=== PATIENT | female | born 1945 | race Caucasian/White ===

== ENCOUNTER → 2016-11-23 | Outpatient (CLI) | payer OTHER, MEDICARE ==
[~2016-11-23] MED LIST: ACYC1CAP8 PO; ALPH200C2 PO; AMT50 PO; BIOTCAP2 PO; BIOTPOW17 PO; CLIN1GEL5; CLTP PO; FINA5TAB PO; FLAX1CAP11 PO; FLUO0.1S12 OP; FLUO0.1S2 OP; GABA-113 PO; GLC850 PO; LIRA18IN INJ; LISI5TAB3 PO; MAGN400T6 PO; METH500T3 PO; METO25TA3 PO; MISCCAP77 PO; MULT-190 PO; NLSI SC; OXYC-57 PO; SIMV40TA2 PO; SYN125 PO; VITA100C4 PO; VITAMIN B12 PO; WARF2TAB PO
--- NOTE | 2016-11-23 16:15 | DIAGNOSTIC IMAGING REPORT ---
RIGHT HIP UNILATERAL 2 VIEWS, LEFT HIP UNILATERAL 2 VIEWS CLINICAL HISTORY: Bilateral hip pain. COMPARISON STUDY: PET CT 07/24/2015. FINDINGS: No acute fracture or dislocation within the right or left hip. There is mild to moderate right and moderate to severe left medial cartilage space narrowing within the bilateral hips. There is associated subchondral sclerosis and subchondral cystic change within the bilateral hips, left greater than right. There is question of slight flattening of the bilateral femoral heads on the lateral views. IMPRESSION: 1. No acute fracture or dislocation within the right or left hip. 2. Mild to moderate right and moderate to severe left hip osteoarthritis . The sclerosis within the femoral heads is likely due to the long-standing degenerative change. However, there may be slight flattening of the femoral heads on the lateral view. Nonemergent MRI follow is recommended to exclude developing avascular necrosis. Electronically signed by: Arturo Johnson M.D. 11/23/2016 4:14 PM Dictated Date/Time: 11/23/2016 4:10 PM
== END | disposition home or self-care (01) ==
LOC: C.RAD1850 14:39
PROVIDERS: ATTEND Family Medicine
DX: M25.551 Pain in right hip (principal); M25.552 Pain in left hip; M16.0 Bilateral primary osteoarthritis of hip

== ENCOUNTER → 2016-12-01 | Outpatient (CLI) | payer OTHER, MEDICARE ==
--- NOTE | 2016-12-01 14:19 | DIAGNOSTIC IMAGING REPORT ---
PELVIS 1 OR 2 VIEWS CLINICAL HISTORY: Bilateral hip pain COMPARISON STUDY: No previous studies for comparison. FINDINGS: No acute fractures are visualized. There are bilateral osteoarthritic changes more severe in the left. No destructive lesions are evident. Degenerative changes are present within the lumbar spine. IMPRESSION: 1. No acute fractures 2. Moderate osteoarthritic changes on the left, mild to moderate osteoarthritic changes on the right. Electronically signed by: Red Minor M.D. 12/01/2016 2:18 PM Dictated Date/Time: 12/01/2016 2:17 PM
== END | disposition home or self-care (01) ==
LOC: C.RDSM 14:05
PROVIDERS: ATTEND Family Medicine
DX: M25.551 Pain in right hip (principal)

== ENCOUNTER → 2016-12-07 | Outpatient (CLI) | payer OTHER, MEDICARE ==
[~2016-12-07] MED LIST changes: +ACYC-57 PO; -ACYC1CAP8 PO
--- NOTE | 2016-12-07 12:12 | DIAGNOSTIC IMAGING REPORT ---
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 FINDINGS: Right jugular Port-A-Cath terminates in the SVC/right cephalic junction. This remains unchanged. The heart is stable in size. Surgical clips at the right hilum. No pneumothorax. A few linear scarlike densities within the base of the right middle lobe. Otherwise, the lungs are clear. No pleural effusions. Old, healed left-sided rib fractures. IMPRESSION: A few linear densities within the base of right middle lobe which favor scarring. Otherwise, no acute process within the chest. Electronically signed by: Arturo Johnson M.D. 12/07/2016 12:11 PM Dictated Date/Time: 12/07/2016 12:07 PM
== END | disposition home or self-care (01) ==
LOC: C.RAD 10:56
PROVIDERS: ATTEND Nurse Practitioner Family
DX: C91.10 Chronic lymphocytic leukemia of B-cell type not having achieved remission (principal)

== ENCOUNTER → 2016-12-07 | Outpatient (CLI) | payer OTHER, MEDICARE ==
--- NOTE | 2016-12-07 10:53 | DIAGNOSTIC IMAGING REPORT ---
MRI THE LEFT HIP NO CONTRAST CLINICAL HISTORY: Left hip pain COMPARISON STUDY: Conventional radiograph the pelvis dated 12/01/2016 FINDINGS: Imaging was performed in the sagittal coronal and axial planes. There is no evidence of pathologic joint effusion. There is no evidence of pathologic adenopathy. There is marrow edema involving the left acetabulum and left femoral head. There are subchondral cystic changes present within the acetabulum and femoral head. There is cartilaginous thinning. While avascular necrosis was considered, the findings are not typical of this diagnosis. IMPRESSION: 1. Rather pronounced marrow edema involving the left acetabulum and left femoral head with subchondral cystic changes and cartilaginous thinning. The findings are likely secondary to advanced osteoarthritis. There are no findings to indicate occult fracture. Electronically signed by: Red Minor M.D. 12/07/2016 10:51 AM Dictated Date/Time: 12/07/2016 10:43 AM
== END | disposition home or self-care (01) ==
LOC: C.MRI 09:34
PROVIDERS: ATTEND Family Medicine
DX: M25.551 Pain in right hip (principal); C91.10 Chronic lymphocytic leukemia of B-cell type not having achieved remission

== ENCOUNTER → 2017-02-15 | Outpatient (CLI) | payer OTHER, MEDICARE ==
--- NOTE | 2017-02-16 08:03 | MAMMOGRAPHY REPORT ---
BILATERAL DIGITAL SCREENING MAMMOGRAM WITH CAD: 02/15/2017 CLINICAL HISTORY: Routine screening. Patient has no complaints. TECHNIQUE: Bilateral CC, MLO and repeat right cc views were obtained. Current study was also evalua audra with a Computer Aided Detection (CAD) system. COMPARISON: Comparison is made to exams dated: 02/12/2016 mammogram, 02/07/2015 mammogram, 02/05/2014 mamm ogram, 08/09/2013 ultrasound, 08/09/2013 mammogram, and 09/30/2012 mammogram - [facility]. BREAST COMPOSITION: The tissue of both breasts is almost entirely fatty. FINDINGS: There is evidence of prior surgery in the breasts. A stable 6 mm mass with associated punc chery microcalcification in the upper outer middle one third of the right breast is unchanged in size dating back to at least 12/08/2007, therefore likely benign. There are numerous scattered and groupe d benign-appearing calcifications bilaterally, and a stable metallic biopsy marker in the anterior le ft breast. No new suspicious mass, architectural distortion or cluster of microcalcifications is see n. IMPRESSION: ACR BI-RADS CATEGORY 1: NEGATIVE There is no mammographic evidence of malignancy. A 1 year screening mammogram is recommended. The pa tient will receive written notification of the results. Approximately 10% of breast cancers are not detected with mammography. A negative mammographic report should not delay biopsy if a clinically suggestive mass is present. Bryanna Alba M.D. ay/:02/15/2017 15:01:14 [employer] Person: Enedina WILLIAM(Kayleen)(Phillip), [facility] letter sent: Normal 1/2 BI-RADS Code: ACR BI-RADS Category 1: Negative
== END | disposition home or self-care (01) ==
LOC: C.MAMM 07:55
PROVIDERS: ATTEND Family Medicine
DX: Z12.31 Encounter for screening mammogram for malignant neoplasm of breast (principal)

== ENCOUNTER 2017-05-12 05:02 | Inpatient (IN) | payer OTHER, MEDICARE ==
--- NOTE | 2017-04-16 12:18 | PAT Medication Instructions ---
Service Date Apr 16, 2017. Current Home Medication List Acyclovir (Zovirax), 400 MG PO BID PRN for PRN Alpha-Lipoic Acid (Thioctic Ac (Alpha Lipoic Acid), 200 MG PO QPM Amitriptyline Hcl (Elavil), 50 MG PO HS Biotin (Biotin 5000), 10,000 MCG PO QAM Calcium/Vitamin D (Caltrate 600 Plus *), 1 TAB PO QPM Fluorometholone (Ophth) (Fml Liquifilm), 1 DROPS OP HS Gabapentin (Neurontin), 300 MG PO TID Levothyroxine (Synthroid *), 0.125 MG PO QAM Liraglutide (Victoza), 1.8 MG INJ QAM Lisinopril (Zestril), 5 MG PO QAM Magnesium Oxide (Mag-Ox), 400 MG PO QAM Metformin Hcl (Glucophage *), 850 MG PO TID Methylcellulose (Laxative) (Citrucel), 500 MG PO TID Metoprolol Succ (Toprol Xl) (Toprol-Xl), 25 MG PO QAM Probiotic Product (Probiotic & Acidophilus F), 1 TAB PO QAM Simvastatin (Zocor), 40 MG PO QPM [Vitamin B12], 1 TAB PO QAM Medication Instructions For Your Scheduled Surgery - Hold the following medications 48 hours prior to surgery: Metformin Hcl (Glucophage *), 850 MG PO TID - Hold the following medications the morning of surgery: [Vitamin B12], 1 TAB PO QAM Probiotic Product (Probiotic & Acidophilus F), 1 TAB PO QAM Methylcellulose (Laxative) (Citrucel), 500 MG PO TID Lisinopril (Zestril), 5 MG PO QAM Magnesium Oxide (Mag-Ox), 400 MG PO QAM Biotin (Biotin 5000), 10,000 MCG PO QAM - Take the following medications the morning of surgery with a sip of water: Metoprolol Succ (Toprol Xl) (Toprol-Xl), 25 MG PO QAM Liraglutide (Victoza), 1.8 MG INJ QAM Gabapentin (Neurontin), 300 MG PO TID Levothyroxine (Synthroid *), 0.125 MG PO QAM Acyclovir (Zovirax), 400 MG PO BID PRN for PRN (if needed) - Take the following medications as scheduled the night before surgery: Simvastatin (Zocor), 40 MG PO QPM Methylcellulose (Laxative) (Citrucel), 500 MG PO TID Gabapentin (Neurontin), 300 MG PO TID Fluorometholone (Ophth) (Fml Liquifilm), 1 DROPS OP HS Calcium/Vitamin D (Caltrate 600 Plus *), 1 TAB PO QPM Amitriptyline Hcl (Elavil), 50 MG PO HS Alpha-Lipoic Acid (Thioctic Ac (Alpha Lipoic Acid), 200 MG PO QPM Acyclovir (Zovirax), 400 MG PO BID PRN for PRN (if needed) If you have any questions please call us at [phone] or [phone] or [phone]
[2017-04-16 13:06] LABS: BASO % 1.1 %; BASO ABS # 0.04 K/uL (0-0.2); COMPLETE YES; EOS % 4.2 %; HEMATOCRIT 39.6 % (37-47); IG% 0.3 %; LYMPH % 26.6 %; LYMPH ABS # 1.01 K/uL (1.2-3.4); MEAN CORPUSCULAR HEMOGLOBIN 29.1 pg (25-34); MEAN CORPUSCULAR HGB CONC 32.3 g/dl (32-36); MEAN PLATELET VOLUME 8.8 fL (7.4-10.4); MONO % 5.5 %; NEUT % 62.3 %; PLATELET COUNT 220 K/uL (130-400); WHITE BLOOD COUNT 3.79 K/uL (4.8-10.8)
[2017-04-16 13:10] LABS: URINE APPEARANCE CLEAR (CLEAR); URINE BILIRUBIN NEG (NEG); URINE COLOR YELLOW; URINE EPITHELIAL CELL AUTO 20-30 /lpf (0-5); URINE NITRITE NEG (NEG); URINE SPECIFIC GRAVITY 1.019 (1.000-1.030); UROBILINOGEN NEG (NEG); ZZUR CULT IF INDIC CLEAN CATCH YES
[2017-04-16 13:14] LABS: MANUAL MICROSCOPIC REQUIRED? NO; REVIEW REQ? NO
[2017-04-16 13:18] LABS: PARTIAL THROMBOPLASTIN RATIO 1.1; PROTHROMBIN TIME (PATIENT) 10.7 SECONDS (9.0-12.0)
[2017-04-16 13:48] LABS: BUN/CREATININE RATIO 17.2 (10-20); CALCIUM 8.8 mg/dl (8.5-10.1); CREATININE 0.68 mg/dl (0.60-1.20); POTASSIUM 4.3 mmol/L (3.5-5.1)
--- NOTE | 2017-04-20 15:47 | HISTORY & PHYSICAL EXAMINATION ---
DATE OF ADMISSION: 05/12/2017 CHIEF COMPLAINT: Left hip pain. HISTORY OF PRESENT ILLNESS: This 71-year-old white female presents to the office with complaints of left hip pain that has been ongoing for years. It has become worse with time. She does have bilateral hip pain, but the left is the most problematic. Pain is worse with weightbearing and ambulation. It is affecting her ADLs. She denies any numbness or tingling. No specific trauma. She does have a history of CLL. X-rays have been obtained. She elects to proceed with left total hip arthroplasty in hopes of alleviating her discomfort. PAST MEDICAL HISTORY: Significant for hypertension, PVCs, diabetes, hypothyroidism, history of CLL, osteoarthritis, obesity, history of adenocarcinoma of the lung, adjustment disorder with depressed mood, alopecia, history of diverticulosis, history of melanoma, polyneuropathy, seborrhea, and tinea corporis. PREVIOUS SURGERIES: Right foot toe and bunion surgery, tubal ligation, vaginal hysterectomy, lobectomy from both lungs, shoulder rotator cuff repair, bronchoscopy, shave biopsies, A-port insertion, colonoscopy, and D&C. FAMILY HISTORY: Significant for skin cancer, diabetes, heart disease, laryngeal cancer, melanoma, and stroke. ALLERGIES: KNOWN ALLERGY TO SULFA DRUGS. CURRENT MEDICATIONS: Ketaconazole 2% topical cream b.i.d., Lamisil 250 mg p.o. daily, vitamin B12 at 500 mcg daily, Victoza 1.8 mg daily, biotin 10,000 mcg p.o. daily, probiotic daily, omega 3 fatty acids p.o. daily, magnesium chloride 400 mg p.o. daily, Citracal p.o. daily, Citrucel 1 tablet p.o. t.i.d., acyclovir 400 mg p.o. b.i.d., levothyroxine 125 mcg p.o. daily, metoprolol 25 mg p.o. daily, simvastatin 40 mg p.o. daily, lisinopril 5 mg p.o. daily, finasteride 5 mg half tablet p.o. daily, clobetasol 0.05% topical solution applied b.i.d., fluocinonide 0.05% topical solution b.i.d., triamcinolone cream 0.1% topically b.i.d., amitriptyline 25 mg p.o. at bedtime, gabapentin 300 mg p.o. t.i.d., metformin 850 mg p.o. t.i.d., Imodium A-D 2 mg 2 tablets p.o. q. 6 hours p.r.n. diarrhea, and Tylenol p.r.n. SOCIAL HISTORY: The patient is . has stage IV lung cancer. No tobacco use and no ETOH use. REVIEW OF SYSTEMS: Significant for above stated conditions, otherwise unremarkable. PHYSICAL EXAMINATION: GENERAL: Well-developed and well-nourished elderly white female, in no acute distress. Tearful today. Anxious. Alert and oriented. Sitting in a chair. SKIN: Warm and dry with fair turgor. No rashes. HEENT: Normocephalic and atraumatic. Eyes PERRLA, EOMI. Nares patent bilaterally without turbinate enlargement. Oropharynx without erythema or exudate. No lesions noted. Uvula midline. Oral mucosa moist. Fair dentition. HEART: RRR. No MGR. LUNGS: Clear to auscultation bilaterally. No crackles, rhonchi or wheezing. Good air movement. ABDOMEN: Obese. Bowel sounds present x4, soft and nontender. No organomegaly. No masses. MUSCULOSKELETAL: Left hip has no obvious asymmetry or deformity. She has limited range of motion secondary to discomfort. She is very limited with internal and external rotation. Hip flexion to greater than 90 degrees. Focal discomfort with palpation over the anterior flexion crease. No significant pain with palpation over the greater trochanter. Ambulatory with a significantly antalgic gait. NEUROLOGIC: Cranial nerves II through XII are intact. Gross sensation is intact across the lower extremities by soft touch. Peripheral pulses are 2+ in the left leg. DATA: Radiographic imaging previously obtained shows an end-stage DJD of the hips, left greater than right. Periarticular osteophytes, subchondral sclerosis, and joint space narrowing are present. IMPRESSION: Left hip end-stage degenerative joint disease. PLAN: Informed written consent will be obtained today of surgery to proceed with left hip total hip arthroplasty. She anticipates going home with home health services for 2 weeks. Prescription was provided for a walker. Prescription for Percocet and Coumadin will be provided at discharge from the hospital. She will obtain medical clearance from her PCP and export documents clerk. She understands that she may require assistance in caring for her in the first few weeks after surgery. Call with any other concerns.
[2017-05-12] VITALS (10 sets, daily range): BP systolic 100–165; BP diastolic 60–88; PULSE 68–90; TEMP 36.3–37.2; O2SAT 95–100; Ht 177.8 cm; Wt 96.3 kg
[~2017-05-12] VITALS: Ht 177.8 cm; Wt 96.3 kg
[~2017-05-12 05:02] MED LIST changes: -ACYC-57 PO; +ACYC1CAP8 PO; -BIOTPOW17 PO; -CLIN1GEL5; -FINA5TAB PO; -FLAX1CAP11 PO; -FLUO0.1S12 OP; -MULT-190 PO; -NLSI SC; -OXYC-57 PO; -VITA100C4 PO; -WARF2TAB PO
[2017-05-12] MEDS ORDERED: ROPIVACAINE 5MG/ML 30 ML 150 MG, BUPIVACAINE/EPINEPHR 0.5% MPF 30 ML, KETOROLAC TROMETH... INFIL SCH ×7 (06:00)
[2017-05-12] MEDS ORDERED: LACTATED RINGER'S 1000ML 500 ML IV ONE (06:00)
[2017-05-12] MEDS ORDERED: LACTATED RINGER'S 1000ML 1,000 ML IV SCH ×2 (06:00)
[2017-05-12] MEDS ORDERED: TRANEXAMIC ACID INJ 1,000 MG in SODIUM CHLORIDE 0.9% 100ML 100 ML IV SCH (06:00)
[2017-05-12] MEDS ORDERED: BUPIVACAINE 0.5 % 5 MG/1 ML PF 10ML VIAL ONE (06:18)
--- NOTE | 2017-05-12 06:18 | History & Physical Bridge Note ---
H&P Re-Evaluation Bridge Note: I have examined the patient, reviewed the History & Physical and in the interval since the performance of the History & Physical I have noted the following changes of clinical significance:consent obtained and went over the risk list. No changes noted
[2017-05-12] MEDS ORDERED: POVIDONE-IODINE OP SOLN 30 ML BTL ONE (06:31)
[2017-05-12] MEDS ORDERED: ORTHO JOINT ANESTHETIC ONE (06:31)
[2017-05-12] MEDS ORDERED: FENTANYL CITRATE INJ 50 MCG/1 ML 2 ML VIAL ONE (06:43)
[2017-05-12] MEDS ORDERED: MIDAZOLAM HCL 1 MG/ML 2ML VIAL ONE ×2 (06:43→07:05)
[2017-05-12] MEDS: CEFAZOLIN 2000 MG/60 ML D5W 60 ML IV SCH ×2 (06:54→07:05)
[2017-05-12] MEDS ORDERED: PROPOFOL IV EMULSION 10 MG/ML 20 ML VIAL IV ONE ×2 (07:06→07:42)
--- NOTE | 2017-05-12 08:55 | [facility] Post Operative Brief Note ---
Immediate Operative Summary Operative Date May 12, 2017. Pre-Operative Diagnosis Left Hip End-Stage Degenerative Joint Disease Post-Operative Diagnosis Left Hip End-Stage Degenerative Joint Disease Procedure(s) Performed Left Total Hip Arthroplasty--Uncemented Surgeon Dr. Gutierrez Pet Counselor Surgeon(s) AGGIE Gonzales Estimated Blood Loss 350 ml Findings severe djd with contracture Fluids (cc crystalloids) 1350cc Specimens A. Left Femoral Head Drains none Anesthesia spinal Complication(s) None Disposition Recovery Room / PACU
[2017-05-12] MEDS ORDERED: SODIUM CHLORIDE 0.9% 1000ML 1,000 ML IV SCH ×2 (08:57→16:45)
[2017-05-12] MEDS ORDERED: METOCLOPRAMIDE HCL INJ 5 MG/ML 2 ML VIAL IV PRN (09:00)
[2017-05-12] MEDS: GABAPENTIN 300 MG CAP PO SCH ×3 (09:00→21:20)
[2017-05-12] MEDS ORDERED: BISACODYL 10 MG SUPP PR PRN (09:00)
[2017-05-12] MEDS ORDERED: OXYCODONE HCL IR 5 MG TAB (IMMEDIATE RELEASE) PO PRN (09:00)
[2017-05-12] MEDS ORDERED: ONDANSETRON INJ 2 MG/ML 2 ML VIAL IV PRN (09:00)
[2017-05-12] MEDS: METOPROLOL SUCC 25MG EXT REL TAB PO SCH (09:00)
[2017-05-12] MEDS ORDERED: DiphenhydrAMINE HCL 50 MG/ML VIAL IV PRN (09:00)
[2017-05-12] MEDS: LEVOTHYROXINE 125 MCG TAB PO SCH (09:00)
[2017-05-12] MEDS ORDERED: MAGNESIUM HYDROXIDE SUSP 30 ML UDC PO PRN (09:00)
[2017-05-12] MEDS ORDERED: MoRPHine SULFATE 2 MG/ML CARP IV PRN (09:00)
[2017-05-12] MEDS ORDERED: ALUMINUM/MAGNESIUM/SIMETH (MAALOX MAX) 30 ML UDC PO PRN (09:00)
--- NOTE | 2017-05-12 09:29 | OPERATIVE REPORT ---
DATE OF OPERATION: 05/12/2017 PREOPERATIVE DIAGNOSIS: Osteoarthritis, severe left hip. POSTOPERATIVE DIAGNOSIS: Same. OPERATION PERFORMED: Noncemented left total hip replacement. SURGEON: Dr. Gutierrez. ACTIVE DIRECTORY SPECIALIST: Osbaldo Cuenca PA-C. No resident or fellow available. SUMMARY OF IMPLANTS: Size 52 acetabular shell sector cup hole eliminator, 6.5 x 25 screw, acetabular liner +4 10 degree lip 36 x 52, 5 high offset Tri-Lock femoral stem and a femoral head 36 +8.5. ESTIMATED BLOOD LOSS: 350. FLUIDS: 1300 mL of fluid. PROCEDURE: The patient appropriately identified, site verified, consent verified, 2 grams of Ancef confirmed as being given. The left lower extremity was prepped and draped in usual routine fashion. She was roughly equal leg lengths, but bilateral disease in the hips. She was placed in right lateral decubitus position appropriately prepped and draped in usual routine fashion. Posterior approach to the hip was made. Sharp dissection carried down to the fascia. This was then incised. The Charnley retractor placed. Care taken to protect the sciatic nerve, which was palpated but not dissected. The short external rotators were all contracted. They were released. The capsule was then T'd and then the hip dislocated. The femoral neck resected. She was large, required a fair amount of dissection and retracting. The osteophytes around the margin of the pelvis were removed, serial reaming carried up to a 52 and a 52 cup impacted into appropriate anteversion and inclination. The trial liner was then seated. The femur was then flexed and internally rotated and broaching carried up to a size 5 and a 5 high offset stem provided the most stability. There was still some instability with maximum flexion, internal rotation beyond 25 degrees with the leg flexed less than 90 degrees, internal rotation can go to 60 degrees. Leg lengths were within millimeters of equality. This was with a +8.5 neck. The hip was then dislocated, the hip was then irrigated with Betadine Pulsavac, hole eliminator seated, permanent liner seated, permanent stem seated, trial reductions carried out. Again, the 8.5 was definitely the appropriate size and permanent was then placed and the hip reduced. Care taken to protect the sciatic nerve and then sure that there was no entrapped tissue in the cup. The hip was stable with the exception of maximum flexion, internal rotation. The wound was irrigated and then closed with #2 Vicryl, 2-0 Vicryl and stainless steel clips. Appropriate dressing applied and the patient transferred to recovery room in satisfactory condition having tolerated the procedure well. DVT prophylaxis will be with Coumadin. I attest to the content of the Intraoperative Record and any orders documented therein. Any exception s are noted below.
--- NOTE | 2017-05-12 09:32 | Anesthesiology Progress Note ---
Anesthesia Post Op Note Date & Time May 12, 2017 at 09:32 Vital Signs Pain Intensity: 0 Vital Signs Past 12 Hours Date Time Temp Pulse Resp B/P (MAP) Pulse Ox O2 Delivery O2 Flow Rate FiO2 05/12/17 09:26 36.3 05/12/17 09:24 67 16 05/12/17 09:24 66 16 100 05/12/17 09:22 132/83 05/12/17 09:19 72 13 05/12/17 09:19 71 13 100 05/12/17 09:17 126/72 05/12/17 09:14 71 15 05/12/17 09:14 71 15 100 05/12/17 09:13 141/71 05/12/17 09:12 74 16 97 05/12/17 09:12 67 16 05/12/17 09:07 69 17 100 05/12/17 09:07 69 17 05/12/17 09:06 68 17 142/67 100 05/12/17 09:06 68 17 05/12/17 09:02 125/85 05/12/17 09:01 70 16 05/12/17 09:01 69 16 100 05/12/17 08:57 124/75 05/12/17 08:56 76 15 05/12/17 08:56 76 15 100 05/12/17 08:56 36.3 80 12 124/75 99 Oxymask 10 05/12/17 05:37 36.9 90 20 135/81 97 Room Air Notes Mental Status: alert / awake / arousable, participated in evaluation Pt Amnestic to Procedure: Yes Nausea / Vomiting: adequately controlled Pain: adequately controlled Airway Patency, RR, SpO2: stable & adequate BP & HR: stable & adequate Hydration State: stable & adequate Neuraxial Anesthesia: was administered, sensory block is resolving Anesthetic Complications: no major complications apparent
[2017-05-12] MEDS ORDERED: ATROPINE SULFATE 0.1 MG/ML 5ML SYR IV PRN (09:45)
[2017-05-12] MEDS ORDERED: EpHEDrine SULFATE INJ 50 MG/ML AMP IV PRN (09:45)
--- NOTE | 2017-05-12 09:46 | DIAGNOSTIC IMAGING REPORT ---
AP PELVIS History: Left total hip arthroplasty. Degenerative arthritis. Postop. FINDINGS: The patient is status post a left total hip arthroplasty. The hardware is intact. No fracture or dislocation. Skin agustin are in place. IMPRESSION: Left total hip arthroplasty. No evidence for hardware complication. Electronically signed by: Arturo Johnson M.D. 05/12/2017 9:45 AM Dictated Date/Time: 05/12/2017 9:42 AM
[2017-05-12] MEDS ORDERED: MoRPHine SULFATE 4 MG/ML 1 ML CARP\\VIAL IV PRN (10:30)
--- NOTE | 2017-05-12 10:57 | Medical Consult ---
Consultation Date of Consultation: May 12, 2017. Attending Physician: Yuan Gutierrez M.D. Reason for Consultation: Post-op med evaluation History of Present Illness 71 y/o F Hx CLL HTN, HPL, DM, hypothyroid, DJD - admitted 05/11 for elective L SHEILA. Pt is recovering well following surgery - vitals are stable. She is tolerating PO an denies CP, SOB, N/V, light-headedness. Follow-up labs are pending. Labs form 04/16 reviewed - notable for mild Leukopenia and a +UA. Past Medical/Surgical History 1) CLL - states she is cancer-free - had several years of chemo 2) Mild neutropenia on previous labs 3) Lung CA - treated with resection only 4) HTN 5) DM 2 6) Hypothyroidism 7) Obesity 8) Melanoma 9) Polyneuropathy 10) Osteoarthritis Family History Diabetes mellitus Hypertension Social History Smoked for 7 years total in her youth Pts currently being treated for stage IV lung CA with immune therapy Smoking Status: Former Smoker Drug Use: none Marital Status: Housing Status: lives with family Occupation Status: employed Allergies Coded Allergies: Sulfa Antibiotics (Verified Allergy, Severe, RASH, 05/12/17) Current Inpatient Medications Current Inpatient Medications Medications (Trade) Dose Ordered Sig/Tracie Route Start Time Stop Time Status Last Admin Dose Admin Lactated Ringer's 1,000 ml @ 15 mls/hr Q24H IV 05/12/17 06:00 05/13/17 05:59 05/12/17 05:57 15 MLS/HR Lactated Ringer's 1,000 ml @ 60 mls/hr [id number] IV 05/12/17 06:00 05/12/17 22:39 Cefazolin Sodium 60 ml @ 100 mls/hr PREOP IV 05/12/17 06:00 05/12/17 18:00 05/12/17 07:05 100 MLS/HR Sodium Chloride 1,000 ml @ 100 mls/hr Q10H IV 05/12/17 08:57 05/13/17 08:56 Ketorolac Tromethamine (Toradol Inj) 15 mg Q6 IV. 05/12/17 12:00 05/13/17 11:59 Oxycodone HCl (Roxicodone Immediate Rel Tab) 1 TABLET FOR PAIN RATING... Q4H PRN PO 05/12/17 09:00 05/26/17 08:59 Morphine Sulfate (MoRPHine SULFATE INJ) 2 mg Q1H PRN IV 05/12/17 09:00 05/26/17 08:59 Acetaminophen 1000 mg/Empty Bag 100 ml @ 400 mls/hr Q8 IV 05/12/17 14:00 05/13/17 13:59 Acetaminophen (Tylenol Tab) 650 mg Q6H PRN PO 05/13/17 14:00 06/12/17 13:59 Magnesium Hydroxide (Milk Of Magnesia Susp) 30 ml Q6H PRN PO 05/12/17 09:00 06/11/17 08:59 Bisacodyl (Dulcolax Supp) 10 mg DAILY PRN [place] 05/12/17 09:00 06/11/17 08:59 Docusate Sodium (coLACE CAP) 100 mg BID PO 05/12/17 09:00 06/11/17 08:59 Diphenhydramine HCl (Benadryl Inj) 25 mg Q8H PRN IV 05/12/17 09:00 06/11/17 08:59 Al Hydrox/Mg Hydrox/Simethicone (Maalox Max Susp) 15 ml Q4H PRN PO 05/12/17 09:00 06/11/17 08:59 Multivitamins (Multivitamin Tab) 1 tab QAM PO 05/12/17 09:00 06/11/17 08:59 Ondansetron HCl (Zofran Inj) 4 mg Q6H PRN IV 05/12/17 09:00 06/11/17 08:59 Metoclopramide HCl (Reglan Inj) 10 mg Q6H PRN IV 05/12/17 09:00 06/11/17 08:59 Ferrous Gluconate (Ferrous Gluconate Tab) 324 mg TIDM PO 05/12/17 12:30 06/11/17 12:29 Pantoprazole Sodium (Protonix Tab) 40 mg QAM PO 05/12/17 09:00 06/11/17 08:59 Cefazolin Sodium 2000 mg/Dextrose 60 ml @ 100 mls/hr Q8H IV 05/12/17 16:00 05/13/17 00:35 Tranexamic Acid 1000 mg/Sodium Chloride 110 ml @ 660 mls/hr ONE ONCE IV 05/12/17 15:00 05/12/17 15:09 Dexamethasone Sodium Phosphate 10 mg/Syringe 2.5 ml @ 1 mls/min ONE ONCE IV 05/13/17 07:30 05/13/17 07:32 Amitriptyline HCl (Elavil Tab) 50 mg HS PO 05/12/17 21:00 06/11/17 20:59 Gabapentin (Neurontin Cap) 300 mg TID PO 05/12/17 09:00 06/11/17 08:59 Levothyroxine Sodium (Synthroid Tab) 125 mcg DAILYBB PO 05/12/17 09:00 06/11/17 08:59 Lisinopril (Zestril Tab) 5 mg QAM PO 05/12/17 09:00 06/11/17 08:59 Magnesium Oxide (Mag-Ox Tab) 400 mg QAM PO 05/12/17 09:00 06/11/17 08:59 Metoprolol Succinate (Toprol Xl Tab) 25 mg QAM PO 05/12/17 09:00 06/11/17 08:59 Simvastatin (Zocor Tab) 40 mg QPM PO 05/12/17 21:00 06/11/17 20:59 Miscellaneous Information (Order Awaiting Action) 1 ea QS N/A 05/12/17 16:00 06/11/17 15:59 Miscellaneous Information (Order Awaiting Action) 1 ea QS N/A 05/12/17 16:00 06/11/17 15:59 Miscellaneous Information (Order Awaiting Action) 1 ea QS N/A 05/12/17 16:00 06/11/17 15:59 Insulin Aspart (novoLOG ASPART) SLIDING SCALE G... ACHS SC 05/12/17 12:00 06/11/17 11:59 Ephedrine Sulfate (EpHEDrine SULFATE INJ) 5 mg Q5M PRN IV 05/12/17 09:45 05/12/17 14:45 Atropine Sulfate (Atropine Sulfate 0.1MG/Ml Inj) 0.5 mg Q1M PRN IV 05/12/17 09:45 05/12/17 14:45 Morphine Sulfate (MoRPHine SULFATE INJ) 4 mg Q1H PRN IV 05/12/17 10:30 05/26/17 10:29 Review of Systems Constitutional: No fever, No chills, No sweats Eyes: No worsening of vision ENT: No hearing loss, No unusual epistaxis, No nasal symptoms Respiratory: No cough, No sputum, No wheezing Cardiovascular: No chest pain Abdomen: No pain, No nausea, No vomiting Musculoskeletal: No joint pain (She is pain-free immediately ), No muscle pain Genitourinary - Female: No dysuria, No urinary frequency, No urinary urgency Neurologic: No memory loss Psychiatric: No depression symptoms Endocrine: No fatigue Hematologic / Lymphatic: No abnormal bleeding/bruising Integumentary: No rash Allergic / Immunologic: No environmental allergies Physical Exam Date Time Temp Pulse Resp B/P (MAP) Pulse Ox O2 Delivery O2 Flow Rate FiO2 05/12/17 10:29 76 16 121/79 (93) 05/12/17 09:42 153/65 05/12/17 09:40 61 15 05/12/17 09:40 64 15 100 05/12/17 09:37 139/66 05/12/17 09:35 65 14 100 05/12/17 09:35 66 14 05/12/17 09:32 134/75 05/12/17 09:30 67 16 100 05/12/17 09:30 68 16 05/12/17 09:27 126/68 05/12/17 09:26 36.3 05/12/17 09:25 67 14 100 05/12/17 09:25 66 14 05/12/17 09:24 67 16 05/12/17 09:24 66 16 100 05/12/17 09:22 132/83 05/12/17 09:19 72 13 05/12/17 09:19 71 13 100 05/12/17 09:17 126/72 05/12/17 09:14 71 15 05/12/17 09:14 71 15 100 05/12/17 09:13 141/71 05/12/17 09:12 74 16 97 05/12/17 09:12 67 16 05/12/17 09:07 69 17 100 05/12/17 09:07 69 17 05/12/17 09:06 68 17 142/67 100 05/12/17 09:06 68 17 05/12/17 09:02 125/85 05/12/17 09:01 70 16 05/12/17 09:01 69 16 100 05/12/17 08:57 124/75 05/12/17 08:56 76 15 05/12/17 08:56 76 15 100 05/12/17 08:56 36.3 80 12 124/75 99 Oxymask 10 05/12/17 05:37 36.9 90 20 135/81 97 Room Air General Appearance: WD/WN, no apparent distress, + pertinent finding (Pleasant elderly female in no distress - AAO x 3) Head: normocephalic Eyes: normal inspection ENT: normal ENT inspection, pharynx normal Neck: supple, no JVD Respiratory/Chest: chest non-tender, lungs clear Cardiovascular: regular rate, rhythm, no edema, no gallop, no JVD Abdomen/GI: normal bowel sounds, non tender, soft Back: normal inspection, no CVA tenderness Extremities/Musculoskelatal: normal inspection, no calf tenderness, normal capillary refill, no pedal edema Neurologic/Psych: housekeeping supervisor hotel II-XII nml as tested, no motor/sensory deficits, alert Skin: normal color, warm/dry Laboratory Results Last 24 Hours Test 05/12/17 05:27 05/12/17 09:13 Bedside Glucose 106 mg/dl 103 mg/dl Assessment & Plan 71 y/o F Hx CLL HTN, HPL, DM, hypothyroid, DJD - admitted 05/11 for elective L SHEILA. Pt is recovering well following surgery - vitals are stable. She is tolerating PO an denies CP, SOB, N/V, light-headedness. Follow-up labs are pending. Labs form 04/16 reviewed - notable for mild Leukopenia and a +UA. 1) Post-op - no noted complications - med will follow-up after repeat labs - she can restart the majority of her home medications - we would hold off on Lisinopril pending AM labs. PT/OT, anticoagulation to discretion of orthopedics. 2) DM - would place on SS pending AM labs and evaluation. 3) Hypothyroid - cont Synthroid 4) HPL - cont Statin Tx 5) On review of April labs her UA was + - We will check her UA as treatment may avoid complication considering her post-op status and low WBC count. Med will follow pending DC Total time for this consult including review of labs, meds, records - discussion with pt - review of ortho notes - 33 min
[2017-05-12] MEDS: DOCUSATE SODIUM 100 MG CAP PO SCH ×2 (11:16→21:19)
[2017-05-12] MEDS: MAGNESIUM OXIDE 400 MG TAB PO SCH (11:16)
[2017-05-12] MEDS: MULTIVITAMIN TAB PO SCH (11:16)
[2017-05-12] MEDS: PANTOprazole SOD 40 MG TAB PO SCH (11:17)
[2017-05-12] MEDS: LISINOPRIL 5 MG TAB PO SCH (11:18)
[2017-05-12] MEDS: KETOROLAC TROMETHAMINE 15 MG/ML VIAL IV. SCH ×2 (11:37→17:32)
[2017-05-12] MEDS: INSULIN ASPART 100 UNITS/ML 3 ML PEN SC SCH ×3 (11:43→21:00)
--- NOTE | 2017-05-12 11:44 | [facility] Operative Report ---
Operative Report Operative Date May 12, 2017. Pre-Operative Diagnosis Left Hip End-Stage Degenerative Joint Disease Post-Operative Diagnosis Left Hip End-Stage Degenerative Joint Disease Procedure(s) Performed Left Total Hip Arthroplasty--Uncemented Surgeon Dr. Gutierrez Targeteer Surgeon(s) AGGIE Gonzales Estimated Blood Loss 350 ml Findings Left hip DJD Fluids 1350cc Specimens A. Left Femoral Head Drains none Anesthesia spinal Complication(s) None Disposition Recovery Room / PACU Indications This 71-year-old white female presented to the office of complaints of intractable left hip pain. She had tried conservative care measures without success. Patient elected to proceed with surgical intervention after being educated about potential risks and outcomes. Preoperative imaging was obtained. Description of Procedure Patient was administered a spinal anesthetic and then taken to the operating room where she was given sedation. She was prepped and draped in usual sterile fashion. Please see Dr. Gutierrez's operative report for specifics of the procedure. I was present for the entire case from initial patient positioning through final wound closure. Assistance was provided in tissue traction, hemostasis, trial implant placement, final implant placement, and final wound closure. Patient was taken to the recovery room in satisfactory condition. I attest to the content of the Intraoperative Record and any orders documented therein. Any exceptions are noted below.
--- NOTE | 2017-05-12 12:29 | PROGRESS NOTE ---
DATE: 05/12/2017 Postop check status post left total hip replacement. At this point in time the patient is sitting comfortably in bed, eating lunch. She denies any chest pain, shortness of breath, fever, chills, nausea, vomiting or headache. Vital signs are stable. She is afebrile. Neurovascular check, femoral sciatic nerve is intact. X-ray postop looks excellent. ASSESSMENT: Doing well status post hip replacement. Continue with post-care pathway, DVT prophylaxis with Coumadin this evening. Mobilize this afternoon.
[2017-05-12] MEDS: FERROUS GLUCONATE 324 MG TAB PO SCH ×2 (12:52→17:31)
[2017-05-12] MEDS ORDERED: TRANEXAMIC ACID INJ 1,000 MG in SODIUM CHLORIDE 0.9% 100ML 100 ML IV ONE (15:00)
[2017-05-12] MEDS: ACETAMINOPHEN IV 1,000 MG in EMPTY BAG 0 ML IV SCH ×2 (15:04→21:42)
[2017-05-12] MEDS ORDERED: WARFARIN SOD 5 MG TAB PO SCH (16:00)
[2017-05-12] MEDS: CEFAZOLIN IV 2,000 MG in DEXTROSE 5% 50ML 50 ML IV SCH (16:18)
[2017-05-12] MEDS ORDERED: SIMVASTATIN 40 MG TAB PO SCH (21:00)
[2017-05-12] MEDS ORDERED: AMITRIPTYLINE HCL 50 MG TAB PO SCH (21:00)
[2017-05-13] MEDS: CEFAZOLIN IV 2,000 MG in DEXTROSE 5% 50ML 50 ML IV SCH (00:35)
[2017-05-13] MEDS: KETOROLAC TROMETHAMINE 15 MG/ML VIAL IV. SCH ×2 (00:35→05:36)
[2017-05-13 03:17] VITALS: BP 102/64; PULSE 73; TEMP 36.5; O2SAT 96
[2017-05-13] MEDS: LEVOTHYROXINE 125 MCG TAB PO SCH (05:36)
[2017-05-13] MEDS: ACETAMINOPHEN IV 1,000 MG in EMPTY BAG 0 ML IV SCH (05:37)
[2017-05-13 05:46] LABS: URINE APPEARANCE CLEAR (CLEAR); URINE BILIRUBIN NEG (NEG); URINE COLOR YELLOW; URINE NITRITE NEG (NEG); UROBILINOGEN NEG (NEG)
[2017-05-13 05:49] LABS: MANUAL MICROSCOPIC REQUIRED? NO; REVIEW REQ? NO
[2017-05-13 05:59] LABS: BASO % 0.1 %; BASO ABS # 0.01 K/uL (0-0.2); COMPLETE YES; EOS % 0.7 %; HEMATOCRIT 31.9 % (37-47); IG% 0.3 %; LYMPH % 7.8 %; LYMPH ABS # 0.54 K/uL (1.2-3.4); MEAN CELL VOLUME 87.2 fL (80-100); MEAN CORPUSCULAR HEMOGLOBIN 29.2 pg (25-34); MEAN CORPUSCULAR HGB CONC 33.5 g/dl (32-36); MEAN PLATELET VOLUME 8.3 fL (7.4-10.4); MONO % 9.5 %; NEUT % 81.6 %; PLATELET COUNT 166 K/uL (130-400); RED BLOOD COUNT 3.66 M/uL (4.2-5.4); WHITE BLOOD COUNT 6.92 K/uL (4.8-10.8)
[2017-05-13 06:33] LABS: BUN/CREATININE RATIO 20.1 (10-20); CALCIUM 8.1 mg/dl (8.5-10.1); CREATININE 0.7 mg/dl (0.60-1.20); POTASSIUM 4.1 mmol/L (3.5-5.1)
--- NOTE | 2017-05-13 07:26 | PROGRESS NOTE ---
DATE: 05/13/2017 Postop day 1 status post left total hip replacement. The patient is doing well. Denies chest pain, shortness of breath, fever, chills, nausea, vomiting or headache. PHYSICAL EXAMINATION: VITAL SIGNS: Vital signs are stable. She is afebrile. ABDOMEN: Soft, nontender. EXTREMITIES: Bilateral calves, nontender. Femoral sciatic nerve function is intact both lower extremities. Wound dressing clean, dry and intact. Hematocrit stable in the 30s. INR is subtherapeutic. ASSESSMENT: Doing well. Will discharge after PT, OT today. technical services consultant assessment today. Discharge on 4 mg of Coumadin after today. Get Coumadin dose per nomogram today and then start 4 mg on Wednesday and get INR checked on Wednesday.
[2017-05-13] MEDS ORDERED: DEXAMETHASONE INJ 10 MG in SYRINGE 0 ML IV ONE (07:30)
[2017-05-13 07:42] VITALS: BP 106/70; PULSE 77; TEMP 36.8; O2SAT 95
--- NOTE | 2017-05-13 07:48 | DISCHARGE SUMMARY ---
CHIEF COMPLAINT: Left hip pain. HISTORY OF PRESENT ILLNESS: A 71-year-old female admitted for elective left total hip replacement, has done well. She denies any major issues. She is ambulatory. Her pain is well managed. PAST MEDICAL HISTORY: Remarkable for hypertension, PVCs, diabetes, hypothyroidism, history of LIZZ, osteoarthritis, obesity, history of adenocarcinoma of the lung, adjustment disorder with depressed mood, alopecia, history of diverticulosis, history of melanoma, history of polyneuropathy, seborrhea and tinea corporis. PAST SURGICAL HISTORY: Include, bunion surgery, tubal ligation, vaginal hysterectomy, lobectomy, rotator cuff repair, bronchoscopy, shave biopsies, A port insertion, colonoscopy and D and C. FAMILY HISTORY: Remarkable for skin cancer, diabetes, heart disease, laryngeal cancer, melanoma and stroke. ALLERGIES: TO SULFA DRUGS. CURRENT MEDICATIONS: Include, ketoconazole cream b.i.d., Lamisil 250 mg daily, vitamins, Victoza 1.8 mg daily, biotin 10,000 mcg p.o. daily, omega 3 fatty acids daily, magnesium chloride 400 mg p.o. daily, Citracal p.o. daily, Citrucel 1 tablet t.i.d. acyclovir 400 mg p.o. b.i.d., levothyroxine 125 mcg daily, metoprolol 25 mg daily, simvastatin 40 mg daily, lisinopril 5 mg daily, finasteride 5 mg half tablet p.o. daily, clobetasol 0.5% topical b.i.d., fluocinonide 0.5% topical solution b.i.d., triamcinolone cream 0.1% topically b.i.d., amitriptyline 25 mg at bedtime, gabapentin 300 mg p.o. t.i.d., metformin 850 mg p.o. t.i.d., Imodium A-D 2 mg tablets p.o. q. 6 hours p.r.n., Tylenol p.r.n. She will add Coumadin to keep INR 1.8-2.2. We will discharge on 4 mg daily. SOCIAL HISTORY: Remarkable for: She is , has a with lung cancer. No tobacco or alcohol use. REVIEW OF SYSTEMS: Negative as noted above with no headache, chest pain, shortness of breath, fever, chills, nausea, vomiting. PHYSICAL EXAMINATION: Reveals intact femoral sciatic nerve function in bilateral lower extremities. Calves nontender. Wound dressing is clean, dry and intact, able to move. Hip is stable. IMAGING DATA: X-rays look excellent. ASSESSMENT: Doing well status post left total hip replacement. We will discharge after physical therapy and occupational therapy today. Posture precautions. Deep vein thrombosis, and pulmonary embolism prophylaxis with Coumadin. Keep INR 1.8-2.2. Discharge on 4 mg daily p.r.n. Percocet. MTDD
[2017-05-13] MEDS ORDERED: OXYC-57 PO (08:57)
[2017-05-13] MEDS ORDERED: WARF2TAB PO (08:57)
--- NOTE | 2017-05-13 09:02 | Discharge Instructions ---
Discharge Instructions Date of Service May 13, 2017. Admission Reason for Admission: Left Hip Degenerative Joint Disease Discharge Discharge Diagnosis / Problem: Left hip s/p total hip replacement Discharge Goals Goal(s): Decrease discomfort, Improve function, Increase independence Activity Recommendations Activity Limitations: as noted below Lifting Limitations: gradually increase as tolerated Exercise/Sports Limitations: until after follow-up appointment Shower/Bathe: keep incision dry Driving or Machine Use: No driving until cleared by Dr. Gutierrez Weightbearing Status: Left weightbearing (as tolerated) . Instructions / Follow-Up Instructions / Follow-Up New Medicine: * You will likely be taking one or more of these medicines: 1. Percocet - Take, as directed, when you need it, every four to six hours to control your pain. 2. Coumadin - Thins your blood to lessen the chance of forming a blood clot. The dose of this is different for each person and is based on your blood tests that are done twice a week. * The most common side effects of pain medicine and iron are nausea and constipation. If nausea or constipation is too much of a problem or if you have any questions about your new medicines or doses, call [facility] at . We will try to help you manage these issues. VERY IMPORTANT TO READ AND REVIEW" Blood Clots and Blood Thinning Medicine: * You are given Coumadin during the immediate post-operative period to lessen the risk of blood clots forming in your legs and/or lungs. Coumadin is usually given for six weeks after surgery. * The prescription is for 2 mg tablets. At discharge, you should understand your dose and take it all at the same time every day, preferably after dinner. * You need to get your blood checked 1 - 2 times per week for six weeks, or as directed. * If your dose needs to change, we will call you. Do not take your medication on the day of the blood test until we call you. * If you don't hear from us after your blood draws, keep taking the same dose. Pain: * The immediate post-operative period after hip replacement surgery is often quite painful. * You are given a prescription for pain medicine. You should take it, as directed, when you need it, especially before physical therapy and before going to bed. Pain that interferes with sleep is very common and can last several months. * You will likely need pain medicine for the first two to four weeks. It will not stop all of the pain. The pain will lessen and as you feel better, you may change to milder pain medicine such as Tylenol. * The most common side effects of pain medicine are nausea and constipation, so don't take more than you need. Physical Therapy: * Follow the "Hip Precautions Instructions." * In some cases, the social worker psychiatric at the hospital will arrange to have a therapist come to your house for the first couple of weeks to help you learn these skills. * You need to practice on your own or with the help of a family member as needed. * When you learn these skills, most of the therapy can be done on your own. Home Exercise: * You were shown a series of exercises in the hospital. Do these exercises three to four times each day including the exercises you were shown in physical therapy. Walking: * Get up and walk several times each day. For the first four weeks, try not to stand or walk for more than one hour at a time. If you do stand or walk for more than one hour, you will not hurt anything, but your leg will likely swell. * As you feel comfortable, you may change from the walker or crutches to a cane and then to independent walking. SELF CARE INSTRUCTIONS AFTER TOTAL HIP REPLACEMENT Until the incision and soft tissues around your hip have healed, there is a possibility that the hip prosthesis could dislocate. A. Observe the following precautions to prevent dislocation: 1. Don't bend your hip greater than 90 degrees. 2. Avoid crossing your legs or ankles while standing or lying. 3. Sit with your feet placed 6 inches apart. 4. When sitting, keep your knees below your hips. Sit on a firm surface, avoid deep, soft chairs and couches. Use an elevated toilet seat in the bathroom. 5. Don't bend over at the waist. Use a long handled shoehorn and a sock aid to help you put on your shoes and socks. A metal sponge making machine operator can help you coal picker objects that are too high or too low to reach. 6. Keep car riding to a minimum for at least one month after surgery. B. Your balance may be shaky for a while. Use crutches or a walker until directed by your doctor. C. Use hand rails when walking on stairs. D. Wear low heeled shoes with non-slip soles. E. Be sure that your floors are free of things that could trip you - throw rugs , electrical cords, small objects. Avoid wet and waxed floors, especially with crutches and canes. F. Try to walk several times a day with rest periods between. G. Continue with all the exercises taught to you in the hospital. Again, make walking a part of your daily routine. VERY IMPORTANT TO READ AND REVIEW A. Take Coumadin, or Lovenox (blood thinning medications) as directed by your doctor. If you are on Coumadin, have a pro-time (blood test) drawn according to your doctor's instructions. This will tell the doctor how well the Coumadin is thinning your blood. B. There are a few signs you need to watch for after you are home. If you notice any of the followin. Increased severe hip pain. Some pain is expected especially when you exercise. 2. Increased swelling in your leg or knee; pain or swelling of the calf muscle in either lower leg. 3. Any fluid drainage from the incision. 4. Shortness of breath or chest pain. TEDs/Elastic Stockings: * The white elastic stockings help limit swelling and prevent blood clots from forming in your legs. The more you wear them, the more they work. * Wear them for six weeks. Prevention of Infection: * Take antibiotics one hour before any dental cleaning, dental work, urological procedure, gastrointestinal procedure or any invasive surgery in order to prevent your new joint from getting infected. * You may get the antibiotics from the doctor performing the procedure or we will call in a prescription to the pharmacy of your choice. Call the office for a prescription at least 2 days prior to your appointment. Things to Watch For: * Drainage from the incision site that occurs more than one week after your surgery. * Severely increased leg pain or swelling. * Increased redness at the incision site. * Fever above 101 degrees Fahrenheit. * Unusual chest pain or shortness of breath. * Unusual pain or burning with urination. Current Hospital Diet Patient's current hospital diet: Diabetes Type 2 Diet Discharge Diet Recommended Diet: Diabetes Type 2 Diet Procedures Procedures Performed: Left Total Hip Arthroplasty--Uncemented Pending Studies Studies pending at discharge: no Medical Emergencies . Who to Call and When: Medical Emergencies: If at any time you feel your situation is an emergency, please call 911 immediately. . Non-Emergent Contact Non-Emergency issues call your: Primary Care Provider, Surgeon Call Non-Emergent contact if: temperature is above 101, wound has increased drainage, wound has increased redness, wound has increased pain, you have any medication questions . "Provider Documentation" section prepared by Osbaldo Cuenca PA-C. . VTE Core Measure Inpt VTE Proph given/why not?: Warfarin (Coumadin), Catherine Swanson, SCD's [place] Drug Monitoring Program Search Results: no issues identified
--- NOTE | 2017-05-13 09:08 | Orthopedic Progress Note ---
Orthopedic Progress Note Date of Service May 13, 2017. Subjective Post OP Day: 1 Reports: feeling well, Denies: complaints, chest pain, SOB, nausea / vomiting, light headedness, calf pain Additional Notes: states she feels pretty well this morning and would like to go home. Objective calves soft nontender, N/V intact, hip located, capillary refill less than 2 sec., dressing C/D/I, incision C/D/I, A&O x3, toes mobile, CMS intact No active drainage. Saw patient ambulating in the hallway with steady slow gait Date Time Temp Pulse Resp B/P (MAP) Pulse Ox O2 Delivery O2 Flow Rate FiO2 05/13/17 07:42 36.8 77 18 106/70 (82) 95 Room Air 05/13/17 03:17 36.5 73 14 102/64 (77) 96 Room Air 05/13/17 00:42 Room Air 05/12/17 23:20 36.8 83 18 100/60 (73) 95 Room Air 05/12/17 19:35 36.8 86 16 113/72 (86) 96 Room Air 86 05/12/17 19:10 Room Air 05/12/17 15:51 37.2 80 16 121/73 (89) 97 Room Air 05/12/17 14:57 100 Nasal Cannula 2.0 05/12/17 13:02 36.5 80 16 165/88 (113) 100 Nasal Cannula 2.0 05/12/17 12:09 36.9 75 18 121/75 (90) 100 Nasal Cannula 2.0 05/12/17 10:53 73 16 134/84 (101) 05/12/17 10:29 76 16 121/79 (93) 05/12/17 09:50 36.3 68 16 143/79 (100) 100 Nasal Cannula 2.0 05/12/17 09:50 100 Nasal Cannula 2.0 05/12/17 09:42 153/65 05/12/17 09:40 61 15 05/12/17 09:40 64 15 100 05/12/17 09:37 139/66 05/12/17 09:35 65 14 100 05/12/17 09:35 66 14 05/12/17 09:32 134/75 05/12/17 09:30 67 16 100 05/12/17 09:30 68 16 9/6/17 09:27 126/68 05/12/17 09:26 36.3 05/12/17 09:25 67 14 100 05/12/17 09:25 66 14 05/12/17 09:24 67 16 05/12/17 09:24 66 16 100 05/12/17 09:22 132/83 05/12/17 09:19 72 13 05/12/17 09:19 71 13 100 05/12/17 09:17 126/72 05/12/17 09:14 71 15 05/12/17 09:14 71 15 100 05/12/17 09:13 141/71 05/12/17 09:12 74 16 97 05/12/17 09:12 67 16 05/12/17 09:07 69 17 100 05/12/17 09:07 69 17 05/12/17 09:06 68 17 142/67 100 05/12/17 09:06 68 17 Laboratory Results 24 Hours: Test 05/13/17 05:35 White Blood Count 6.92 K/uL Red Blood Count 3.66 M/uL Hemoglobin 10.7 g/dL Hematocrit 31.9 % Mean Corpuscular Volume 87.2 fL Mean Corpuscular Hemoglobin 29.2 pg Mean Corpuscular Hemoglobin Concent 33.5 g/dl Platelet Count 166 K/uL Mean Platelet Volume 8.3 fL Neutrophils (%) (Auto) 81.6 % Lymphocytes (%) (Auto) 7.8 % Monocytes (%) (Auto) 9.5 % Eosinophils (%) (Auto) 0.7 % Basophils (%) (Auto) 0.1 % Neutrophils # (Auto) 5.64 K/uL Lymphocytes # (Auto) 0.54 K/uL Monocytes # (Auto) 0.66 K/uL Eosinophils # (Auto) 0.05 K/uL Basophils # (Auto) 0.01 K/uL Prothromb Time International Ratio 1.0 Prothrombin Time 11.0 SECONDS Assessment & Plan Assessment: Left hip post op day 1 total hip arthroplasty Plan: Dressing changed this morning-Dr. Gutierrez present. continue coumadin per nomogram continue total hip precautions plan for D/C to home today after PT/OT call the office with any questions. Discharge Planning Discharge Planning: home with home health Pain Management: Percocet DVT Prophylaxis: TEDs, SCDs, Coumadin Therapy: Physical Therapy, Occupational Therapy
[2017-05-13] MEDS: INSULIN ASPART 100 UNITS/ML 3 ML PEN SC SCH (09:25)
[2017-05-13] MEDS: METOPROLOL SUCC 25MG EXT REL TAB PO SCH (09:25)
[2017-05-13] MEDS: PANTOprazole SOD 40 MG TAB PO SCH (09:26)
[2017-05-13] MEDS: FERROUS GLUCONATE 324 MG TAB PO SCH ×2 (09:26→12:17)
[2017-05-13] MEDS: GABAPENTIN 300 MG CAP PO SCH (09:26)
[2017-05-13] MEDS: MULTIVITAMIN TAB PO SCH (09:26)
[2017-05-13] MEDS: MAGNESIUM OXIDE 400 MG TAB PO SCH (09:26)
[2017-05-13] MEDS: DOCUSATE SODIUM 100 MG CAP PO SCH (09:26)
[2017-05-13] MEDS: LISINOPRIL 5 MG TAB PO SCH (09:27)
[2017-05-13] MEDS ORDERED: WARFARIN SOD 5 MG TAB PO SCH (12:00)
[2017-05-13 12:13] VITALS: BP 124/70; PULSE 70; TEMP 37.2; O2SAT 96
[2017-05-13 13:16] VITALS: BP 124/70; PULSE 70; TEMP 37.2; O2SAT 96
[2017-05-13] MEDS ORDERED: ACETAMINOPHEN 325 MG TAB PO PRN (14:00)
== END 2017-05-13 13:54 | disposition home health service (06) | DRG 470 ==
LOC: C.ACU 05:02 → UNDOADMIN 06:15 → C.3E 06:15 → ENRESERV 09:20
PROVIDERS: ADMIT Physical Medicine & Rehabilitation Sports Medicine; ATTEND Physical Medicine & Rehabilitation Sports Medicine
PROC: 0SRB0JA Replacement of Left Hip Joint with Synthetic Substitute, Uncemented, Open Approach (ICD-10-PCS; principal; 2017-05-12 07:00)
DX: M16.12 Unilateral primary osteoarthritis, left hip (principal); I10 Essential (primary) hypertension; E11.42 Type 2 diabetes mellitus with diabetic polyneuropathy; E03.9 Hypothyroidism, unspecified; L65.9 Nonscarring hair loss, unspecified; F43.21 Adjustment disorder with depressed mood; E66.9 Obesity, unspecified; Z51.81 Encounter for therapeutic drug level monitoring; Z79.899 Other long term (current) drug therapy; Z79.84 Long term (current) use of oral hypoglycemic drugs; Z68.30 Body mass index [BMI] 30.0-30.9, adult; Z85.118 Personal history of other malignant neoplasm of bronchus and lung; Z85.820 Personal history of malignant melanoma of skin; Z85.6 Personal history of leukemia; Z87.891 Personal history of nicotine dependence; Z80.8 Family history of malignant neoplasm of other organs or systems; Z83.3 Family history of diabetes mellitus; Z82.3 Family history of stroke; Z82.49 Family history of ischemic heart disease and other diseases of the circulatory system

== ENCOUNTER → 2017-05-20 | Outpatient (CLI) | payer OTHER, MEDICARE ==
[~2017-05-20] MED LIST changes: +OXYC-57 PO; +WARF2TAB PO
[2017-05-20 13:52] LABS: INR 1.2 (0.9-1.1); PROTHROMBIN TIME (PATIENT) 13.4 SECONDS (9.0-12.0)
== END | disposition home or self-care (01) ==
LOC: C.LABSPEC 12:46
PROVIDERS: ATTEND Physical Medicine & Rehabilitation Sports Medicine
DX: Z79.01 Long term (current) use of anticoagulants (principal)

== ENCOUNTER → 2017-05-24 | Outpatient (CLI) | payer OTHER, MEDICARE ==
[~2017-05-24] MED LIST changes: +ACYC-57 PO; -ACYC1CAP8 PO
[2017-05-24 13:14] LABS: INR 1.7 (0.9-1.1); PROTHROMBIN TIME (PATIENT) 18.7 SECONDS (9.0-12.0)
== END | disposition home or self-care (01) ==
LOC: C.LABSPEC 12:16
PROVIDERS: ATTEND Physical Medicine & Rehabilitation Sports Medicine
DX: Z01.89 Encounter for other specified special examinations (principal)

== ENCOUNTER → 2017-05-28 | Outpatient (CLI) | payer OTHER, MEDICARE ==
[~2017-05-28] MED LIST changes: -ACYC-57 PO; +ACYC1CAP8 PO
[2017-05-28 12:16] LABS: INR 2.2 (0.9-1.1); PROTHROMBIN TIME (PATIENT) 24.1 SECONDS (9.0-12.0)
== END | disposition home or self-care (01) ==
LOC: C.LAB 11:31
PROVIDERS: ATTEND Physician Assistant
DX: Z51.81 Encounter for therapeutic drug level monitoring (principal); Z79.01 Long term (current) use of anticoagulants

== ENCOUNTER → 2017-06-11 | Outpatient (CLI) | payer OTHER, MEDICARE ==
[2017-06-11 09:38] LABS: INR 1.6 (0.9-1.1); PROTHROMBIN TIME (PATIENT) 17.1 SECONDS (9.0-12.0)
== END | disposition home or self-care (01) ==
LOC: C.LABSPEC 16:35
PROVIDERS: ATTEND Physician Assistant
DX: Z51.81 Encounter for therapeutic drug level monitoring (principal); Z79.01 Long term (current) use of anticoagulants

== ENCOUNTER → 2017-06-18 | Outpatient (CLI) | payer OTHER, MEDICARE ==
[~2017-06-18] MED LIST changes: +ACYC-57 PO; -ACYC1CAP8 PO
[2017-06-18 09:27] LABS: INR 2.2 (0.9-1.1)
[2017-06-18 09:56] LABS: CHOLESTEROL/HDL RATIO 2.6
== END | disposition home or self-care (01) ==
LOC: C.LAB 13:43
PROVIDERS: ATTEND Physician Assistant
DX: Z51.81 Encounter for therapeutic drug level monitoring (principal); Z79.01 Long term (current) use of anticoagulants

== ENCOUNTER → 2017-07-05 | Outpatient (CLI) | payer OTHER, MEDICARE | END | disposition home or self-care (01) | LOC: C.RDSM 09:45 | PROVIDERS: ATTEND Physical Medicine & Rehabilitation Sports Medicine | DX: M16.0 Bilateral primary osteoarthritis of hip (principal) ==

== ENCOUNTER → 2017-09-17 | Outpatient (CLI) | payer OTHER, MEDICARE ==
[2017-09-17 16:03] LABS: ALBUMIN 3.7 gm/dl (3.4-5.0); ALT/SGPT 30 U/L (12-78); BLOOD UREA NITROGEN 14 mg/dl (7-18); CALCIUM 9.3 mg/dl (8.5-10.1); CARBON DIOXIDE 28 mmol/L (21-32); CHOLESTEROL 168 mg/dl (0-200); CREATININE 0.82 mg/dl (0.60-1.20); GLUCOSE 200 mg/dl (70-99); POTASSIUM 4.4 mmol/L (3.5-5.1); SODIUM 139 mmol/L (136-145)
[2017-09-17 16:14] LABS: ALKALINE PHOSPHATASE 72 U/L (45-117); AST/SGOT 22 U/L (15-37); LDL CHOLESTEROL CALCULATED 61 mg/dl; TOTAL PROTEIN 7.6 gm/dl (6.4-8.2)
[2017-09-18 06:40] LABS: HEMOGLOBIN A1C 6.6 % (4.5-5.6)
== END | disposition home or self-care (01) ==
LOC: C.LAB1850 13:28
PROVIDERS: ATTEND Internal Medicine Endocrinology, Diabetes & Metabolism
DX: R20.0 Anesthesia of skin (principal); R80.9 Proteinuria, unspecified; E11.9 Type 2 diabetes mellitus without complications; E66.9 Obesity, unspecified

== ENCOUNTER → 2018-04-18 | Outpatient (CLI) | payer OTHER, MEDICARE ==
[~2018-04-18] MED LIST changes: -OXYC-57 PO; -WARF2TAB PO
== END | disposition home or self-care (01) ==
LOC: C.RDSM 07:35
PROVIDERS: ATTEND Physical Medicine & Rehabilitation Sports Medicine
DX: M25.552 Pain in left hip (principal)

== ENCOUNTER → 2018-04-27 | Outpatient (CLI) | payer OTHER, MEDICARE ==
[2018-04-27 10:19] LABS: BASO % 0.8 %; BASO ABS # 0.03 K/uL (0-0.2); EOS % 3.5 %; EOS ABS # 0.14 K/uL (0-0.5); HEMATOCRIT 39.2 % (37-47); HEMOGLOBIN 12.5 g/dL (12.0-16.0); IG# 0.01 K/uL (0.00-0.02); LYMPH % 24.1 %; LYMPH ABS # 0.96 K/uL (1.2-3.4); MEAN CELL VOLUME 89.1 fL (80-100); MEAN CORPUSCULAR HEMOGLOBIN 28.4 pg (25-34); MEAN CORPUSCULAR HGB CONC 31.9 g/dl (32-36); MEAN PLATELET VOLUME 8.9 fL (7.4-10.4); MONO % 7.5 %; NEUT % 63.8 %; NEUT ABS # 2.55 K/uL (1.4-6.5); PLATELET COUNT 177 K/uL (130-400); RED CELL DISTRIBUTION WIDTH CV 13.9 % (11.5-14.5); RED CELL DISTRIBUTION WIDTH SD 45.3 fL (36.4-46.3); WHITE BLOOD COUNT 3.99 K/uL (4.8-10.8)
[2018-04-27 11:08] LABS: ALBUMIN 3.5 gm/dl (3.4-5.0); ALKALINE PHOSPHATASE 66 U/L (45-117); ALT/SGPT 23 U/L (12-78); AST/SGOT 13 U/L (15-37); BLOOD UREA NITROGEN 24 mg/dl (7-18); CALCIUM 8.6 mg/dl (8.5-10.1); CARBON DIOXIDE 28 mmol/L (21-32); CREATININE 0.68 mg/dl (0.60-1.20); GLUCOSE 89 mg/dl (70-99); POTASSIUM 4.3 mmol/L (3.5-5.1); SODIUM 140 mmol/L (136-145); TOTAL PROTEIN 6.4 gm/dl (6.4-8.2)
== END | disposition home or self-care (01) ==
LOC: C.LABSPEC 10:09
PROVIDERS: ATTEND Nurse Practitioner Family
DX: C91.10 Chronic lymphocytic leukemia of B-cell type not having achieved remission (principal)

== ENCOUNTER 2020-10-13 02:31 | Inpatient (IN) ==
--- NOTE | 2020-10-13 02:42 | Emergency Department Note ---
History of Present Illness General Chief complaint: Fall Stated complaint: FALL Time Seen by Provider: 10/13/20 02:32 History of Present Illness This 75-year-old presents to the ER complaining of fall with left hip thigh pain Location: Left hip and thigh Quality: Throbbing Severity: Moderate Duration: Tonight Timing: Tonight Context: Pain got worse and patient came in Modifying factors: better with rest; worse with walking Patient states she fell last night in the garage around 5 PM. She is able to get up and bear weight. She called her orthopedic doctor and was advised to monitor. Pain got worse and patient came in. Patient denies back pain, numbness, tingling, chest pain, dyspnea, abdominal pain, blood thinners. Home Medications Medication Instructions Recorded Confirmed Type acyclovir 400 mg tablet 400 mg PO BID tab 08/24/19 10/13/20 History calcium carbonate-vitamin D3 600 1 tab PO DAILY 08/24/19 10/13/20 History mg (1,500 mg)-800 unit tablet metoprolol succinate 25 mg 25 mg PO DAILY 08/24/19 10/13/20 History tablet,extended release 24 hr simvastatin 40 mg tablet 40 mg PO DAILY tab 08/24/19 10/13/20 History cyanocobalamin (vitamin B-12) 1,000 mcg PO DAILY cap 08/25/19 10/13/20 History 1,000 mcg capsule omega-3 fatty acids 1,000 mg 1,000 mg PO DAILY cap 08/25/19 10/13/20 History capsule gabapentin 300 mg capsule 300 mg PO TID 90 Days #270 cap 11/16/19 10/13/20 Rx metformin 850 mg tablet 850 mg PO TID #270 tab 01/17/20 10/13/20 Rx calcitriol 0.5 mcg capsule 0.5 mcg PO .COMPLEX #90 cap 04/25/20 10/13/20 Rx amitriptyline 50 mg tablet 50 mg PO HS 90 Days #90 tab 05/02/20 10/13/20 Rx levothyroxine 88 mcg tablet 88 mcg PO DAILY #90 tab 07/26/20 10/13/20 Rx blood sugar diagnostic #30 ea 08/12/20 08/12/20 Rx blood sugar diagnostic #30 ea 08/13/20 Rx fluoride (sodium) [SF 5000 Plus] 1 applic DENTAL HS 10/13/20 10/13/20 History Allergies Allergy/AdvReac Type Severity Reaction Status Date / Time Sulfa (Sulfonamide Allergy Severe RASH Verified 10/13/20 04:17 Antibiotics) Past Med/Surg History Medical History Conductive hearing loss in left ear Diabetic peripheral neuropathy associated with type 2 diabetes mellitus Diverticular disease of colon History of - malignant melanoma (Unknown) "upper extremities followed by Dr. Santana " History of pneumonia Hypomagnesemia Loss of protective sensation of skin of foot Lung cancer (~01/2013) Surgical History H/O vaginal surgery prolapase repair, she refers to it as "web" Total hysterectomy with removal of both tubes and ovaries (Unknown) "vaginal approach 2009 Dr. Mathur " Social History Smoking Status: Former smoker Hx Alcohol Use: No Feels Safe at Home: Yes Review of Systems A total of 10 systems reviewed and were otherwise negative Physical Exam Vital Signs Vital Signs - 24 hr 10/13/20 02:35 10/13/20 02:40 10/13/20 03:18 Temperature 36.9 C Temperature Source Oral Pulse Rate 92 H 93 H 76 Pulse Rate [Apical] Pulse Rate from SpO2 Sensor 91 H Respiratory Rate 20 18 14 Respiratory Effort / Characteristics Non-Labored Spontaneous Respiratory Depth Normal Respiratory Pattern Regular Blood Pressure 124/83 124/83 90/51 L Blood Pressure [Right Arm] Blood Pressure Mean 96 96 64 Blood Pressure Mean [Right Arm] Blood Pressure Position Semi-fowlers Blood Pressure Position [Right Arm] Pulse Oximetry 98 98 Oxygen Delivery Method Room Air Sepsis Recent Fever Within 48 Hours No Sepsis New/Unexplained Change in Mental Status No Sepsis Action Taken by Nursing No Action Required 10/13/20 03:19 10/13/20 03:46 10/13/20 03:48 Temperature Temperature Source Pulse Rate 69 65 Pulse Rate [Apical] 75 Pulse Rate from SpO2 Sensor Respiratory Rate 18 24 18 Respiratory Effort / Characteristics Respiratory Depth Respiratory Pattern Blood Pressure 74/46 L 81/44 L Blood Pressure [Right Arm] 90/51 L Blood Pressure Mean 55 56 Blood Pressure Mean [Right Arm] 64 Blood Pressure Position Blood Pressure Position [Right Arm] Lying Pulse Oximetry 96 Oxygen Delivery Method Room Air Sepsis Recent Fever Within 48 Hours Sepsis New/Unexplained Change in Mental Status Sepsis Action Taken by Nursing VITALS: Vitals are noted on the nurse's note and reviewed by myself. Vital signs stable. GENERAL: Pleasant elderly female, in no acute distress, nondiaphoretic, well- developed well-nourished. SKIN: Capillary reflex less than 2 seconds. HEENT: Normocephalic. PERRLA. EOMI. Nares patent. Mucous membranes moist. Neck is supple without nuchal rigidity. HEART: Regular rate and rhythm LUNGS: Clear to auscultation bilaterally without wheezes, rales or rhonchi. No retractions or accessory muscle use. ABDOMEN: Positive bowel sounds x 4. Normal tympanic percussion. Soft, nontender, without masses or organomegaly. Manley sign negative. No guarding or rebound tenderness. MUSCULOSKELETAL: No gross musculoskeletal defects. No thoracic or lumbar tenderness on exam. Left hip and proximal thigh tender to palpation. Increased pain with range of motion. All other extremities nontender to palpation with full range of motion. Pedal pulses +2 equal and present bilaterally. NEURO: Patient was alert and oriented to person place and time. Normal sensation to light and sharp touch. No focal neurological deficits. Course Administered Medications Discontinued Medications Sodium Chloride (Nss 1000ml) 500 mls @ 999 mls/hr IV .Q31M ONE Stop: 10/13/20 04:20 Last Infusion: 10/13/20 04:58 Dose: 0 mls/hr Documented by: [id number] Admin: 10/13/20 04:19 Dose: 999 mls/hr Documented by: [id number] Sodium Chloride (Nss 1000ml) 500 mls @ 999 mls/hr IV .Q31M ONE Stop: 10/13/20 04:27 Last Infusion: 10/13/20 04:58 Dose: 0 mls/hr Documented by: [id number] Admin: 10/13/20 04:19 Dose: 999 mls/hr Documented by: [id number] Ondansetron HCl (Ondansetron 4 Mg Od Tab) 4 mg PO NOW STA Stop: 10/13/20 03:20 Last Admin: 10/13/20 03:23 Dose: 4 mg Documented by: [id number] Medical Decision Making Medical Records Attestation: I reviewed the patient's medical records. Home Medications Current Medication List: was personally reviewed by me Laboratory Data Result diagrams: 10/13/20 04:05 10/13/20 04:05 Lab Results 10/13/20 10/13/20 10/13/20 Range/Units 04:05 04:05 04:14 WBC 6.85 (4.8-10.8) K/uL RBC 3.09 L (4.2-5.4) M/uL Hgb 9.2 L (12.0-16.0) g/dL POC Hgb 9.2 L (12.0-16.0) g/dl Hct 27.0 L (37-47) % POC Hct 27 L (37-47) % MCV 87.4 (80-100) fL MCH 29.8 (25-34) pg MCHC 34.1 (32-36) g/dL RDW Std Deviation 43.2 (36.4-46.3) fL RDW Coeff of Latasha 13.5 (11.5-14.5) % Plt Count 183 (130-400) K/uL MPV 9.1 (7.4-10.4) fL Immature Gran % (Auto) 0.0 % Neut % (Auto) 85.5 % Lymph % (Auto) 7.9 % Mckean % (Auto) 6.0 % Eos % (Auto) 0.3 % Baso % (Auto) 0.3 % Neut # (Auto) 5.86 (1.4-6.5) K/uL Lymph # (Auto) 0.54 L (1.2-3.4) K/uL Mckean # (Auto) 0.41 (0.11-0.59) K/uL Eos # (Auto) 0.02 (0-0.5) K/uL Baso # (Auto) 0.02 (0-0.2) K/uL Immature Gran # (Auto) 0.00 (0.00-0.02) K/uL POC Sodium 130 L (135-144) mmol/L Sodium 134 L (136-145) mmol/L POC Potassium 3.7 (3.3-5.0) mmol/L Potassium 3.8 (3.5-5.1) mmol/L POC Chloride 93 L (101-112) mmol/L Chloride 100 (98-107) mmol/L Carbon Dioxide 30 (21-32) mmol/L POC Total CO2 27 (24-31) mmol/L Anion Gap 4.0 (3-11) POC Anion Gap 15.0 L (16-25) mmol/L POC BUN 19 H (7-18) mg/dl BUN 20 H (7-18) mg/dl Creatinine 0.56 L (0.6-1.2) mg/dl POC Creatinine 0.5 L (0.6-1.3) mg/dl Est Cr Clr Drug Dosing 92.1 ml/min Est GFR ( Amer) 106.5 Est GFR (Non-Af Amer) 91.9 BUN/Creatinine Ratio 35.3 H (10-20) Glucose 186 H (70-99) mg/dl POC Glucose (other) 188 H (70-99) mg/dl Calcium 8.1 L (8.5-10.1) mg/dl POC Ioniz Calcium Ian 1.14 (1.12-1.32) mmol/l Total Bilirubin 0.3 (0.2-1) mg/dl AST 12 L (15-37) U/L ALT 15 (12-78) U/L Alkaline Phosphatase 38 L (45-117) U/L Total Protein 5.6 L (6.4-8.2) gm/dl Albumin 3.1 L (3.4-5.0) gm/dl Globulin 2.5 (2.5-4.0) gm/dl Albumin/Globulin Ratio 1.2 (0.9-2) COVID-19 Eval Order 10/13/20 Range/Units 04:45 WBC (4.8-10.8) K/uL RBC (4.2-5.4) M/uL Hgb (12.0-16.0) g/dL POC Hgb (12.0-16.0) g/dl Hct (37-47) % POC Hct (37-47) % MCV (80-100) fL MCH (25-34) pg MCHC (32-36) g/dL RDW Std Deviation (36.4-46.3) fL RDW Coeff of Latasha (11.5-14.5) % Plt Count (130-400) K/uL MPV (7.4-10.4) fL Immature Gran % (Auto) % Neut % (Auto) % Lymph % (Auto) % Mckean % (Auto) % Eos % (Auto) % Baso % (Auto) % Neut # (Auto) (1.4-6.5) K/uL Lymph # (Auto) (1.2-3.4) K/uL Mckean # (Auto) (0.11-0.59) K/uL Eos # (Auto) (0-0.5) K/uL Baso # (Auto) (0-0.2) K/uL Immature Gran # (Auto) (0.00-0.02) K/uL POC Sodium (135-144) mmol/L Sodium (136-145) mmol/L POC Potassium (3.3-5.0) mmol/L Potassium (3.5-5.1) mmol/L POC Chloride (101-112) mmol/L Chloride (98-107) mmol/L Carbon Dioxide (21-32) mmol/L POC Total CO2 (24-31) mmol/L Anion Gap (3-11) POC Anion Gap (16-25) mmol/L POC BUN (7-18) mg/dl BUN (7-18) mg/dl Creatinine (0.6-1.2) mg/dl POC Creatinine (0.6-1.3) mg/dl Est Cr Clr Drug Dosing ml/min Est GFR ( Amer) Est GFR (Non-Af Amer) BUN/Creatinine Ratio (10-20) Glucose (70-99) mg/dl POC Glucose (other) (70-99) mg/dl Calcium (8.5-10.1) mg/dl POC Ioniz Calcium Ian (1.12-1.32) mmol/l Total Bilirubin (0.2-1) mg/dl AST (15-37) U/L ALT (12-78) U/L Alkaline Phosphatase (45-117) U/L Total Protein (6.4-8.2) gm/dl Albumin (3.4-5.0) gm/dl Globulin (2.5-4.0) gm/dl Albumin/Globulin Ratio (0.9-2) COVID-19 Eval Order Covid19 [facility] Imaging Data Attestation: I personally reviewed and interpreted this imaging study as follows: MDM Narrative Prior records reviewed and summarized above. Triage Nursing notes reviewed. Additional history obtained from EMS. The patient's history was concerning for left hip and thigh pain. Differential diagnosis: Etiologies such as fracture, dislocation, hematoma, neurovascular compromise, compartment syndrome, soft tissue injury, as well as others were entertained. Physical examination: As above ER treatment provided: IV lock, Zofran IV fluids NPO Bedrest On reassessment the patient felt better. Diagnostics interpreted by me: The labs anemia, type and screen sent Patient consented to blood transfusion if needed and paperwork placed on the chart. Imaging studies: Xrays of hip/pelvis and femur negative for fracture per my interpretation CT PELVIS: No displaced hip fracture or suggestion of nondisplaced hip fracture. Large soft tissue hematoma overlying the left hip measuring approximately 12 x 10 x 5 cm. Left total hip arthroplasty. Moderate right hip arthritis. Radiologist: Vikas Monae MD The patient has a large left thigh hematoma and became hypotensive. Imaging was negative for fracture. She was given IV fluids. Medicine was consulted. She will be evaluated for admission. Blood pressure improved. Patient is agreeable treatment plan of admission. Consultation: A consultation was placed with medicine, Dr. Angulo. The case was discussed and diagnostics were reviewed. The patient was evaluated in the ER for further treatment. The chart was completed utilizing [employer] Speech voice recognition software. Grammatical errors, random word insertions, pronoun errors, and incomplete sentences are an occassional consequence of this system due to software limitations, ambient noise, and hardware issues. Any formal questions or concerns about the content, text, or information contained within the body of this dictation should be directly addressed to the physician assistant finance manager for clarification. Impression & Plan Hypotension, Fall, Hematoma of thigh, Anemia Discharge Plan Visit Data Chief Complaint: Fall Stated Complaint: FALL ED Provider: Thien Michelle ED Midlevel Provider: Sudha Daniels Discharge Problem: Hypotension, Fall, Hematoma of thigh, Anemia Patient Disposition: Admitted As Inpatient Condition: Fair Forms Stand Alone Forms: My [facility] [employer] Prescriptions Prescriptions: No Action gabapentin 300 mg capsule 300 mg PO TID 90 Days Qty: 270 RF: 3 metformin 850 mg tablet 850 mg PO TID Qty: 270 RF: 3 calcitriol 0.5 mcg capsule 0.5 mcg PO .COMPLEX Qty: 90 RF: 3 amitriptyline 50 mg tablet 50 mg PO HS 90 Days Qty: 90 RF: 0 levothyroxine 88 mcg tablet 88 mcg PO DAILY Qty: 90 RF: 0 (DME) blood sugar diagnostic Strip See Rx Instructions .ROUTE .MEDSUPPLY Qty: 30 RF: 3 (DME) blood sugar diagnostic Strip See Rx Instructions .ROUTE .MEDSUPPLY Qty: 30 RF: 3 acyclovir 400 mg tablet 400 mg PO BID RF: 0 calcium carbonate-vitamin D3 [Caltrate with Vitamin D3] 600 mg(1,500mg) -800 unit tablet 1 tab PO DAILY RF: 0 simvastatin 40 mg tablet 40 mg PO DAILY RF: 0 metoprolol succinate [Toprol XL] 25 mg tablet extended release 24 hr 25 mg PO DAILY RF: 0 cyanocobalamin (vitamin B-12) 1,000 mcg capsule 1,000 mcg PO DAILY RF: 0 omega-3 fatty acids [Fish Oil Concentrate] 1,000 mg capsule 1,000 mg PO DAILY RF: 0 fluoride (sodium) [SF 5000 Plus] 1.1 % cream 1 applic dental HS RF: 0 Referrals Referrals: Bianka La MD [Primary Care Provider] - Discharge Problem: Hypotension Qualifiers: Hypotension type: unspecified hypotension type Qualified Code(s): I95.9 - Hypotension, unspecified
--- NOTE | 2020-10-13 03:09 | Emergency Department Note ---
ED Visit Note I have seen and examined this patient with Sudha Daniels and generally agree with the treatment plan as discussed. . : Hypotension Qualifiers: Hypotension type: unspecified hypotension type Qualified Code(s): I95.9 - Hypotension, unspecified
[2020-10-13] MEDS ORDERED: ONDANSETRON 4 MG OD TAB PO STA (03:19)
[2020-10-13] MEDS ORDERED: SODIUM CHLORIDE 0.9% 1000ML 500 ML IV ONE ×2 (03:50→03:57)
[2020-10-13 04:17] LABS: Basophils # (auto) 0.02 K/uL (0-0.2); Basophils % (auto) 0.3 %; Eosinophils # (auto) 0.02 K/uL (0-0.5); Eosinophils % (auto) 0.3 %; Hemoglobin 9.2 g/dL (12.0-16.0); Lymphocytes # (auto) 0.54 K/uL (1.2-3.4); Lymphocytes % (auto) 7.9 %; Mean Corpuscular Hemoglobin 29.8 pg (25-34); Mean Corpuscular Hgb Conc 34.1 g/dL (32-36); Mean Corpuscular Volume 87.4 fL (80-100); Mean Platelet Volume 9.1 fL (7.4-10.4); Monocytes # (auto) 0.41 K/uL (0.11-0.59); Neutrophils # (auto) 5.86 K/uL (1.4-6.5); Neutrophils % (auto) 85.5 %; Platelet Count 183 K/uL (130-400); RDW Coefficient of Variation 13.5 % (11.5-14.5); RDW Standard Deviation 43.2 fL (36.4-46.3); Red Blood Count 3.09 M/uL (4.2-5.4); White Blood Count 6.85 K/uL (4.8-10.8)
[2020-10-13 04:26] LABS: iSTAT Creatinine 0.5 mg/dl (0.6-1.3); iSTAT Hemoglobin 9.2 g/dl (12.0-16.0); iSTAT Ionized Calcium 1.14 mmol/l (1.12-1.32); iSTAT Potassium 3.7 mmol/L (3.3-5.0)
[2020-10-13 04:33] LABS: Albumin Level 3.1 gm/dl (3.4-5.0); BUN Creatinine Ratio 35.3 (10-20); Calcium 8.1 mg/dl (8.5-10.1); Creatinine Clr Calc Pharmacy 92.1 ml/min; Est GFR (African American) 106.5; Est GFR (Non-African American) 91.9; Potassium 3.8 mmol/L (3.5-5.1)
[2020-10-13 04:35] LABS: Albumin Globulin Ratio 1.2 (0.9-2); Bilirubin,Total 0.3 mg/dl (0.2-1); Globulin 2.5 gm/dl (2.5-4.0); Total Protein 5.6 gm/dl (6.4-8.2)
--- NOTE | 2020-10-13 05:49 | History & Physical Report ---
Date of Service October 13, 2020 Assessment & Plan (1) Hypotension: 75 yo F PMHx HTN, DM2, CLL with port for IVIG infusions, hypothyroidism, left hip arthroplasty admitted for hypotension and large hematoma with decrease in Hgb. Hypotension: Noted on ER arrival to have BP 70s/50s, with rapid increase to 90s systolic with 2L NSS. Patient admits poor fluid intake over last day. Does have a history of HTN, on metoprolol succinate 25mg daily at home. Will hold this given hypotension on arrival. Suspect to be secondary to poor fluid intake. Med/Tele for cardiac monitoring. Hematoma 2/2 fall with drop in Hgb: Noted on CT imaging. No fractures noted on imaging. Tylenol and ice prn pain. Hgb baseline 12.5, down to 9.2 on arrival. Repeat H/H later today. Patient is consented for blood in the event that she should require it. DM2: Hold home metformin. SSI while admitted. HLD: Continue home statin. Hypothyroidism: Continue home levothyroxine. Code Status: FULL CODE FEN/GI: DM2 diet DVT ppx: SCDs, no chemoppx given hematoma Dispo: Med/Tele for continuous cardiac monitoring (2) Hematoma of thigh: (3) Hypertension: (4) Diabetes type 2, controlled: (5) Dyslipidemia: (6) Hypothyroidism: History of Present Illness Chief Complaint: fall Primary Care Provider: Bianka La MD 75 yo F PMHx HTN, DM2, CLL with port for IVIG infusions, hypothyroidism, left hip arthroplasty presented to the ER for left hip pain following a fall the evening of 10/11. She was going into her garage and did not turn on the light and "tripped over her own feet" and landed on her left side. Minimal pain at that time, was able to ambulate without pain. 10/12 began to experience significant pain with walking as well as a large bruise over the left hip area, prompting her evaluation in the ER. She denies feeling dizzy or lightheaded prior to her fall. No loss of consciousness. No SOB, chest pain, recent fevers or chills. In the ER she had XR and CT of the left hip, which showed no fractures. There was visualized a large left hip hematoma. Other evaluation included Hgb 9.2 from baseline ~12.5. On arrival was hypotensive to 70s/50s, which after 2L NSS bolus rapidly increased to 90s systolic. Allergies Allergy/AdvReac Type Severity Reaction Status Date / Time Sulfa (Sulfonamide Allergy Severe RASH Verified 10/13/20 04:17 Antibiotics) Home Medications Medication Instructions Recorded Confirmed Type acyclovir 400 mg tablet 400 mg PO BID tab 08/24/19 10/13/20 History calcium carbonate-vitamin D3 600 1 tab PO DAILY 08/24/19 10/13/20 History mg (1,500 mg)-800 unit tablet metoprolol succinate 25 mg 25 mg PO DAILY 08/24/19 10/13/20 History tablet,extended release 24 hr simvastatin 40 mg tablet 40 mg PO DAILY tab 08/24/19 10/13/20 History cyanocobalamin (vitamin B-12) 1,000 mcg PO DAILY cap 08/25/19 10/13/20 History 1,000 mcg capsule omega-3 fatty acids 1,000 mg 1,000 mg PO DAILY cap 08/25/19 10/13/20 History capsule gabapentin 300 mg capsule 300 mg PO TID 90 Days #270 cap 11/16/19 10/13/20 Rx metformin 850 mg tablet 850 mg PO TID #270 tab 01/17/20 10/13/20 Rx calcitriol 0.5 mcg capsule 0.5 mcg PO .COMPLEX #90 cap 04/25/20 10/13/20 Rx amitriptyline 50 mg tablet 50 mg PO HS 90 Days #90 tab 05/02/20 10/13/20 Rx levothyroxine 88 mcg tablet 88 mcg PO DAILY #90 tab 07/26/20 10/13/20 Rx blood sugar diagnostic #30 ea 08/12/20 08/12/20 Rx blood sugar diagnostic #30 ea 08/13/20 Rx fluoride (sodium) [SF 5000 Plus] 1 applic DENTAL HS 10/13/20 10/13/20 History Past Med/Surg History Medical History Conductive hearing loss in left ear Diabetic peripheral neuropathy associated with type 2 diabetes mellitus Diverticular disease of colon History of - malignant melanoma (Unknown) "upper extremities followed by Dr. Santana " History of pneumonia Hypomagnesemia Loss of protective sensation of skin of foot Lung cancer (~01/2013) Surgical History H/O vaginal surgery prolapase repair, she refers to it as "web" Total hysterectomy with removal of both tubes and ovaries (Unknown) "vaginal approach 2009 Dr. Mathur " Social History Smoking Status: Former smoker Second Hand Exposure: No; Do You Dip or Chew Tobacco: No; Tobacco Cessation Education Requested by Patient: No Hx Alcohol Use: No Hx Substance Use: No Preferred Language: Korean Communication Ability: Effective Dev Manager Required: No Beliefs That Will Affect Care: None Current Living Situation: Alone Other Information That Helps Us Care for You: No Feels Safe at Home: Yes Assistive Devices: Glasses Assistive Devices Comment: no dentures and no hearing aids - at home Review of Systems Review of Systems: All systems reviewed & are unremarkable except as noted in HPI & below Constitutional: no fever, no chills and no malaise Respiratory: no cough and no dyspnea Cardiovascular: no chest pain, no palpitations and no edema Gastrointestinal: no abdominal pain, no constipation and no diarrhea/loose stools Genitourinary: no dysuria and no hematuria Physical Exam Constitutional: WD/WN, vitals as above Eyes: PERRL, conjunctivae normal, anicteric sclerae ENMT: external ear and nose normal, oropharynx normal Neck: normal visual inspection Respiratory: normal respiratory effort, lungs clear to auscultation Cardiovascular: RRR, no murmur, no edema Gastrointestinal (Abdomen): normal bowel sounds, soft, nontender, no hepatosplenomegaly Musculoskeletal: no cyanosis or clubbing, extremities motor strength 5/5 Skin: left hip with baseball-sized hematoma Neurologic: AAOx3, normal speech. Bilateral UE, LE, and face without sensory or motor deficits. No tremor. Psychiatric: A+Ox3, euthymic affect Results & Data Results & Data ([facility]) Vital Signs (Past 12 Hours) Vital Signs Temp Pulse Pulse Resp BP BP Pulse Ox 10/13/20 04:56 62 14 131/56 L 10/13/20 04:19 67 20 99/55 L 10/13/20 03:48 65 18 81/44 L 10/13/20 03:46 69 24 74/46 L 96 10/13/20 03:19 75 18 90/51 L 10/13/20 03:18 76 14 90/51 L 10/13/20 02:40 36.9 C 93 H 18 124/83 98 10/13/20 02:35 92 H 20 124/83 98 Code Status & VTE Plan VTE Prophylaxis Plan VTE Prophylaxis will be ordered: Yes Supervising Physician Co-Signing Physician Notes Attending addendum: I have physically seen this patient, have supervised the medical residents activities, and agree with the H&P unless as otherwise noted. Assessment and Plan: Hypotension- Blood pressure initially 74/46, did respond to IV fluid rehydration to systolic blood pressure 130s. Hold metoprolol succinate Left hip hematoma- Secondary to fall. Previous hemoglobin has been noted to be 12.5, but upon admission was down to 9.2. Check serial H&H's No suggestion of active bleeding on CT of pelvis. Diabetes mellitus- Hold Metformin Placed on Accu-Cheks before meals and at bedtime with NovoLog coverage per scale Remaining orders and notations as noted Resident Activity Tracking Resident Involvement: Resident Care Provided Care Provided: Adult Hospital Medicine (1) Hypotension Hypotension type: unspecified hypotension type Qualified Code(s): I95.9 - Hypotension, unspecified
--- NOTE | 2020-10-13 08:13 | CT Scan Report ---
CT pelvis wo con HISTORY: 75 years-old Female fall, severe left hip/thigh pain, ? fx acute left-sided hip pain status post fall. History of leukemia. COMPARISON: Pelvis and left hip radiographs of same day, CT abdomen and pelvis 02/26/2014, PET CT 07/07. TECHNIQUE: Multiple axial CT images of the pelvis were obtained without the use of IV contrast. A dos e lowering technique was used consistent with the principals of [place]. FINDINGS: Numerous stool-filled loops of small bowel are noted. No small bowel obstruction. Colonic diverticulo sis. Asymmetric fatty atrophy of the left piriformis muscle. Uterus appears surgically absent. There is a large subcutaneous and deep tissue hematoma which wraps circumferentially around the left proxim al femur overall measuring approximately 14.3 x 12.5 x 10.8 cm. Diffusion extends into the thigh dist ally outside the [id number]. Hematoma includes intramuscular extension. Demineralized appearance of the bones. Left hip total joint arthroplasty. No acute fracture, dislocat ion or evidence of hardware complication. No sacral insufficiency fracture. Moderate right hip osteoa rthritis. IMPRESSION: 1. No acute fracture or dislocation. 2. Left hip total joint arthroplasty without evidence of hardware complication. 2. Large hematoma surrounding the left proximal femur measuring up to 14 cm in greatest dimension. ACT 112: Negative or not required by law. The above report was generated using voice recognition software. It may contain grammatical, syntax o r spelling errors. Electronically signed by: Cecilio Quiñones M.D. 10/13/2020 8:11 AM
[2020-10-13] MEDS ORDERED: GLUCAGON FOR INJ 1 MG VIAL SQ PRN (08:39)
[2020-10-13] MEDS ORDERED: ONDANSETRON INJ 2 MG/ML 2 ML VIAL IV PRN (08:39)
[2020-10-13] MEDS ORDERED: POLYETHYLENE (MIRALAX) 17 GM PACK PO PRN (08:39)
[2020-10-13] MEDS ORDERED: DEXTROSE 50% 50 ML SYRINGE IV PRN (08:39)
[2020-10-13] MEDS ORDERED: GLUCOSE 10 TABS/TUBE PO PRN (08:39)
[2020-10-13] MEDS ORDERED: ACETAMINOPHEN 325 MG TAB PO PRN (08:39)
[2020-10-13] MEDS ORDERED: CARBOHYDRATES FOR HYPOGLYCEMIA PO PRN (08:39)
[2020-10-13] MEDS ORDERED: GLUCOSE 40% GEL 15 GM TUBE PO PRN (08:39)
--- NOTE | 2020-10-13 08:48 | XRay Report ---
XR hip LT 2V w pelvis, XR femur LT 2V routine HISTORY: 75 years-old Female fall, pain acute left-sided hip pain status post fall COMPARISON: CT pelvis of same day, pelvis and hip radiographs 04/17/2019. TECHNIQUE: AP view of the pelvis with 2 views of the left hip and 2 views of the left femur FINDINGS: PELVIS: Moderate right hip osteoarthritis. Left hip total joint arthroplasty. No acute fracture, dislocation or evidence of hardware complication. There is no avascular necrosis. Moderate to extensive soft tiss ue swelling surrounds the proximal left femur laterally. FEMUR: No acute fracture or dislocation. Osteoarthritis of the left knee. IMPRESSION: 1. No acute fracture or dislocation. 2. Prominent soft tissue swelling lateral to left hip correlates with the large hematoma described on CT pelvis study of same day. ACT 112: Negative or not required by law. The above report was generated using voice recognition software. It may contain grammatical, syntax o r spelling errors. Electronically signed by: Cecilio Quiñones M.D. 10/13/2020 8:47 AM
[2020-10-13] MEDS: INSULIN ASPART 100 UNITS/ML 3 ML PEN SC SCH ×4 (09:30→20:05)
[2020-10-13] MEDS: CALCIUM 600MG + VIT D 400 IU TAB PO SCH ×2 (10:01→10:10)
[2020-10-13] MEDS: OMEGA-3 (PURIFIED FISH OIL) 1 GM CAP PO SCH (10:02)
[2020-10-13] MEDS: CYANOCOBALAMIN 500 MCG TABLET (VITAMIN B-12) PO SCH (10:02)
[2020-10-13] MEDS: GABAPENTIN 300 MG CAP PO SCH ×3 (10:02→20:04)
[2020-10-13] MEDS: METOPROLOL SUCC 25MG EXT REL TAB PO SCH (10:03)
[2020-10-13] MEDS: ACYCLOVIR 400 MG TAB PO SCH ×3 (10:03→20:06)
[2020-10-13] MEDS: CALCITRIOL 0.25 MCG CAPSULE PO SCH (10:03)
[2020-10-13] MEDS: SIMVASTATIN 40 MG TAB PO SCH ×3 (10:03→20:04)
[2020-10-13] MEDS ORDERED: Nursing to Pharmacy Communication SCH (10:30)
[2020-10-13] MEDS ORDERED: LACTATED RINGER'S 1,000 ML IV ONE (11:48)
[2020-10-13 12:38] LABS: Basophils # (auto) 0.01 K/uL (0-0.2); Basophils % (auto) 0.2 %; Eosinophils # (auto) 0.01 K/uL (0-0.5); Eosinophils % (auto) 0.2 %; Hematocrit (blood only) 22.9 % (37-47); Hemoglobin 7.9 g/dL (12.0-16.0); Lymphocytes # (auto) 0.59 K/uL (1.2-3.4); Lymphocytes % (auto) 12.6 %; Mean Corpuscular Hemoglobin 30.2 pg (25-34); Mean Corpuscular Volume 87.4 fL (80-100); Mean Platelet Volume 8.5 fL (7.4-10.4); Monocytes # (auto) 0.43 K/uL (0.11-0.59); Monocytes % (auto) 9.2 %; Neutrophils # (auto) 3.65 K/uL (1.4-6.5); Neutrophils % (auto) 77.8 %; Platelet Count 160 K/uL (130-400); RDW Coefficient of Variation 13.8 % (11.5-14.5); RDW Standard Deviation 43.9 fL (36.4-46.3); Red Blood Count 2.62 M/uL (4.2-5.4); White Blood Count 4.69 K/uL (4.8-10.8)
[2020-10-13 12:57] LABS: Mean Corpuscular Hgb Conc 34.5 g/dL (32-36); RBC Morphology Unremarkable
[2020-10-13] MEDS: LACTATED RINGER'S 1,000 ML IV SCH ×2 (13:04→22:10)
--- NOTE | 2020-10-13 15:27 | Hospitalist Progress Note ---
Date of Service October 13, 2020 Assessment & Plan (1) Hypotension: 75 yo F PMHx HTN, DM2, CLL with port for IVIG infusions, hypothyroidism, left hip arthroplasty admitted for hypotension and large hematoma with decrease in Hgb. Hypotension: 2/2 Large hematoma Hypotensive on arrival to ED improved with 2 L nss, on assessing patient this morning she was hypotensive and orthostatic, gave one L LR bolus and started LR 125 ml/hour moving forward Holding home metoprolol Hematoma 2/2 fall with Acute BLood Loss Anemia Noted on CT imaging. fortunately no fracture or disruption of her prosthesis noted on imaging. Tylenol and ice prn pain, will change to heat when we are confident bleeding has stopped. Hgb baseline 12.5, down to 9.2 on arrival. further decreased to 7.8 today at noon. Will recheck one more this evening, given her acute blood loss and asymptomatic at rest and hypovolemia and hypotension driving some of her dizziness and lightheadedness will set hemoglobin line at 7 Patient is consented for blood in the event that she should require it. Fortunately as this hematoma has grown it is providing self tamponade to eventually slow the bleeding DM2: Hold home metformin. SSI while admitted. HLD: Continue home statin. Hypothyroidism: Continue home levothyroxine. Code Status: FULL CODE FEN/GI: DM2 diet DVT ppx: SCDs, no chemoppx given hematoma Dispo: Med/Tele for continuous cardiac monitoring, once we feel active bleeding has stopped will consult PT/OT to help decide rehab vs home on discharge Admission and Anticipated Discharge Date Admission Date: October 13, 2020 Supervising Physician Co-Signing Physician Notes I personally examined the patient and verified all oseguera points of history and exam, discussed case, and agree with decision making with Dr Rivera. Feeling okay. Pain seems to be reasonably controlled. Lightheaded off and onnot whenever I am seeing her but frequently throughout the day. Vitals noted, in general she is awake alert pleasant no distress. HEENT normoce phalic atraumatic mucous membranes moist. Breathing unlabored no accessory muscle use good effort. Skin shows no rashes no pallor or icterus. Left hip shows a large area consistent with a hematoma tracking down the lateral side of her thigh. Labs and diagnostics noted. Fall, large left hip muscular hematoma, acute hemorrhagic anemia and borderline hypovolemic shock at timescertainly at least symptomatic hypovolemia. Fortunately at this point time she has not required a transfusion, and the growth of the area seems to be slowing. Continue supportive care and vigilance. She may need a transfusion and she is aware of thisbut right now does not indicated. Continue to follow closely. Once she is past the acute phase of this since she is no longer showing lightheadedness and transient hypotension, and her hemoglobin is stable, and the hematoma is clinically stablethen PT/OT eval and treat. Ideally should be able to go home but it will depend on her functional status. Subjective See today's H and P Review of Systems Review of Systems: All systems reviewed & are unremarkable except as noted in HPI & below Physical Exam Physical Exam: See Today's H and P Results & Data Results & Data ([place]) Vital Signs (Past 12 Hours) Vital Signs Temp Pulse Pulse Pulse Pulse Resp BP 10/13/20 11:21 36.9 C 81 20 10/13/20 07:30 36.7 C 71 71 20 10/13/20 07:10 10/13/20 06:18 67 18 107/54 L 10/13/20 04:56 62 14 131/56 L 10/13/20 04:19 67 20 99/55 L 10/13/20 03:48 65 18 81/44 L 10/13/20 03:46 69 24 74/46 L BP Pulse Ox 10/13/20 11:21 98/61 L 98 10/13/20 07:30 119/76 100 10/13/20 07:10 110/63 10/13/20 06:18 96 10/13/20 04:56 10/13/20 04:19 10/13/20 03:48 10/13/20 03:46 96 Resident Activity Tracking Resident Involvement: Resident Care Provided Care Provided: Adult Hospital Medicine (1) Hypotension Hypotension type: unspecified hypotension type Qualified Code(s): I95.9 - Hypotension, unspecified
[2020-10-13 17:50] LABS: Hematocrit (blood only) 24.1 % (37-47); Hemoglobin 8.3 g/dL (12.0-16.0)
--- NOTE | 2020-10-13 18:38 | Billing Data ---
Date of Service October 13, 2020 Coding Level of Care Code 46750 Subseq Obs Care Lvl 3
[2020-10-13] MEDS: AMITRIPTYLINE HCL 50 MG TAB PO SCH (20:03)
[2020-10-14] MEDS ORDERED: FAMOTIDINE 20 MG TAB PO ONE (03:36)
--- NOTE | 2020-10-14 05:17 | Billing Data ---
Date of Service October 14, 2020 Coding Level of Care Code 99183 OBS Care - Level 3
[2020-10-14] MEDS: LEVOTHYROXINE SODIUM 88 MCG TABLET PO SCH (06:13)
[2020-10-14 06:19] LABS: Basophils # (auto) 0.01 K/uL (0-0.2); Basophils % (auto) 0.5 %; Eosinophils # (auto) 0.04 K/uL (0-0.5); Eosinophils % (auto) 1.8 %; Hematocrit (blood only) 22.1 % (37-47); Hemoglobin 7.4 g/dL (12.0-16.0); Immature Granulocytes # (auto) 0.01 K/uL (0.00-0.02); Immature Granulocytes % (auto) 0.5 %; Lymphocytes % (auto) 27.3 %; Mean Corpuscular Hemoglobin 29.6 pg (25-34); Mean Corpuscular Hgb Conc 33.5 g/dL (32-36); Mean Corpuscular Volume 88.4 fL (80-100); Mean Platelet Volume 8.6 fL (7.4-10.4); Monocytes # (auto) 0.27 K/uL (0.11-0.59); Monocytes % (auto) 12.3 %; Neutrophils # (auto) 1.27 K/uL (1.4-6.5); Neutrophils % (auto) 57.6 %; Platelet Count 134 K/uL (130-400); RDW Coefficient of Variation 13.9 % (11.5-14.5); RDW Standard Deviation 45.5 fL (36.4-46.3)
[2020-10-14 07:07] LABS: ALC (manual) 0.33 K/uL (1.2-3.4); ANC (manual) 1.72 K/uL (1.4-6.5); Basophils # (manual) 0.02 K/uL (0-0.2); Basophils % (manual) 1.1 %; Eosinophils # (manual) 0.02 K/uL (0-0.5); Lymphocytes # (manual) 0.33 K/uL (1.2-3.4); Monocytes # (manual) 0.09 K/uL (0.11-0.59); Neutrophils # (manual) 1.72 K/uL (1.4-6.5); Ovalocytes 1+; Tear Drop Cells 1+
--- NOTE | 2020-10-14 07:25 | Hospitalist Progress Note ---
Date of Service October 14, 2020 Assessment & Plan (1) Hypotension: 75 yo F PMHx HTN, DM2, CLL with port for IVIG infusions, hypothyroidism, left hip arthroplasty admitted for hypotension and large hematoma with decrease in Hgb. Hypotension: Thought to be secondary to a large hematoma. The patient was hypotensive on arrival with emergency department, improved with 2 L of normal saline. The patient was reassessed the following morning noted to be hypotensive and orthostatic again, her home metoprolol was held and she improved status post 1 L lactated Ringer's bolus and was continued on lactated Ringer's at 125 mL/h for an additional day. This resulted in significant improvement in her blood pressure. Patient is now been normotensive throughout the day and able to walk to the bathroom independently since yesterday, continue to monitor blood pressure and for signs of orthostatics. -Resume home metoprolol on discharge -Encourage p.o. hydration Hematoma 2/2 fall with Acute Blood Loss Anemia Noted on CT imaging there is no evidence of fracture or destruction of her prosthesis. Patient's pain has been well controlled with Tylenol and ice as needed, plan is to change to 1 year, but the bleeding is stopped. Patient's baseline hemoglobin is 12.5, we have trended it throughout the admission. Given patient's asymptomatic status suspect downtrending is likely dilutional secondary to fluid administration. We will continue to trend hemoglobin and give 2 units of blood for a hgb less than 7. Patient is consented for blood. -Tylenol and ice prn pain, will change to heat when we are confident bleeding has stopped. -Hgb baseline 12.5 -9.2->7.9->8.3->7.4 -suspect variation likely dilutional 2/2 to fluids -given lack of syx, will continue to trend hgb and give 2 u blood for Hgb less than 7 -Follow-up a.m. hemoglobin -As needed H&H for symptoms of acute anemia DM2: -Holding home metformin while admitted SSI while admitted. HLD: Continue home simvastatin 40 mg po hs Hypothyroidism: Continue home levothyroxine. FENa:DMII Code Status: Full Code DVT PPX:contraindicated PT/OT: Plan to order when bleeding has stopped Dispo:Med/tele for cardiac monitoring Odell Jimenez MD PGY 2, FCM This chart was completed utilizing [employer] voice recognition software. Grammatical errors, random word insertions, pronoun errors, and in complete sentences are an occasional consequence of the system. Any questions or concerns about the content, text, or information contained within the body of this dictation should be addressed directly to the physician for clarification. Admission and Anticipated Discharge Date Admission Date: October 13, 2020 Supervising Physician Co-Signing Physician Notes Resident Physician Supervision Note: I independently interviewed and examined the patient and verified the oseguera history and physical, reviewed labs and image studies, discussed the case with the resident Dr. Jimenez and agree with the findings and care plan. Subjective Patient sitting up in bed this morning eating breakfast in no acute distress. Patient did well overnight, reported no acute events, voiding, stooling, sleeping, and tolerating her diet. Patient does endorse not having a bowel movement for the past 2 days, however does not endorse constipation. She also has endorsed a little bit of acid reflux today, she states this is new and not usual for her. Otherwise patient reports doing well she is feeling much better, all questions were answered no acute concerns. Physical Exam Physical Exam: General: No acute distress HEENT: Normocephalic atraumatic Neck: Trachea midline, normal to visual inspection Cardiac: Regular rate and rhythm I did not appreciate any murmurs rubs or gallops, normal S1, normal S2, negative pedal edema, negative calf tenderness Respiratory: Clear to auscultation bilaterally with symmetrical chest expansion, I did not appreciate significant wheezes, rales, rhonchi GI: Soft, nontender, nondistended MSK: Moves all extremities, left hip with hematoma present, warm to touch, negative redness, negative pain. The hematoma appears to be receding from its original size which was marked with a surgical pen Neuro: Alert and oriented x4 Psych: Calm and cooperative with the interview Results & Data Results & Data ([facility]) Vital Signs (Past 12 Hours) Vital Signs Temp Pulse Pulse Resp BP Pulse Ox 10/14/20 03:30 69 16 118/72 99 10/14/20 03:03 36.4 C L 70 18 118/67 96 10/14/20 02:25 75 10/13/20 22:01 36.8 C 73 16 100/63 97 10/13/20 19:37 36.8 C 79 18 104/65 97 Laboratory Results 10/14/20 10/14/20 10/14/20 Range/Units 16:37 11:36 07:57 WBC (4.8-10.8) K/uL RBC (4.2-5.4) M/uL Hgb (12.0-16.0) g/dL Hct (37-47) % MCV (80-100) fL MCH (25-34) pg MCHC (32-36) g/dL RDW Std Deviation (36.4-46.3) fL RDW Coeff of Latasha (11.5-14.5) % Plt Count (130-400) K/uL MPV (7.4-10.4) fL Immature Gran % (Auto) % Neut % (Auto) % Lymph % (Auto) % [place] % (Auto) % Eos % (Auto) % Baso % (Auto) % Neut # (Auto) (1.4-6.5) K/uL Lymph # (Auto) (1.2-3.4) K/uL [place] # (Auto) (0.11-0.59) K/uL Eos # (Auto) (0-0.5) K/uL Baso # (Auto) (0-0.2) K/uL Immature Gran # (Auto) (0.00-0.02) K/uL Neutrophils % (Manual) % Lymphocytes % (Manual) % Monocytes % (Manual) % Eosinophils % (Manual) % Basophils % (Manual) % Neutrophils # (Manual) (1.4-6.5) K/uL Total Absolute Neuts (1.4-6.5) K/uL Lymphocytes # (Manual) (1.2-3.4) K/uL Total Abs Lymphocytes (1.2-3.4) K/uL Monocytes # (Manual) (0.11-0.59) K/uL Eosinophils # (Manual) (0-0.5) K/uL Basophils # (Manual) (0-0.2) K/uL Tear Drop Cells Ovalocytes POC Glucose 123 H 114 H 100 H (70-99) mg/dl 10/14/20 10/13/20 10/13/20 Range/Units 06:09 19:55 17:27 WBC 2.20 L (4.8-10.8) K/uL RBC 2.50 L (4.2-5.4) M/uL Hgb 7.4 L 8.3 L (12.0-16.0) g/dL Hct 22.1 L 24.1 L (37-47) % MCV 88.4 (80-100) fL MCH 29.6 (25-34) pg MCHC 33.5 (32-36) g/dL RDW Std Deviation 45.5 (36.4-46.3) fL RDW Coeff of Latasha 13.9 (11.5-14.5) % Plt Count 134 (130-400) K/uL MPV 8.6 (7.4-10.4) fL Immature Gran % (Auto) 0.5 % Neut % (Auto) 57.6 % Lymph % (Auto) 27.3 % [place] % (Auto) 12.3 % Eos % (Auto) 1.8 % Baso % (Auto) 0.5 % Neut # (Auto) 1.27 L (1.4-6.5) K/uL Lymph # (Auto) 0.60 L (1.2-3.4) K/uL [place] # (Auto) 0.27 (0.11-0.59) K/uL Eos # (Auto) 0.04 (0-0.5) K/uL Baso # (Auto) 0.01 (0-0.2) K/uL Immature Gran # (Auto) 0.01 (0.00-0.02) K/uL Neutrophils % (Manual) % Lymphocytes % (Manual) % Monocytes % (Manual) % Eosinophils % (Manual) % Basophils % (Manual) 1.1 % Neutrophils # (Manual) 1.72 (1.4-6.5) K/uL Total Absolute Neuts 1.72 (1.4-6.5) K/uL Lymphocytes # (Manual) 0.33 L (1.2-3.4) K/uL Total Abs Lymphocytes 0.33 L (1.2-3.4) K/uL Monocytes # (Manual) 0.09 L (0.11-0.59) K/uL Eosinophils # (Manual) 0.02 (0-0.5) K/uL Basophils # (Manual) 0.02 (0-0.2) K/uL Tear Drop Cells 1+ Ovalocytes 1+ POC Glucose 198 H (70-99) mg/dl Medications Administered Current Inpatient Medications Acetaminophen (Acetaminophen 325 Mg Tab) 650 mg PO Q4H PRN PRN Reason: Pain or Fever Stop: 11/12/20 08:38 Last Admin: 10/14/20 11:44 Dose: 650 mg Documented by: Acyclovir (Acyclovir 400 Mg Tab) 400 mg PO BID MARIA T Stop: 11/12/20 08:59 Last Admin: 10/14/20 08:17 Dose: Not Given Documented by: Al Hydroxide/Mg Trisilicate (Alum Hydrox/Mag Trisilicate Chew) 1 tab PO Q4H PRN PRN Reason: Heartburn Stop: 11/13/20 09:00 Last Admin: 10/14/20 12:03 Dose: 1 tab Documented by: Amitriptyline HCl (Amitriptyline Hcl 50 Mg Tab) 50 mg PO HS MARIA T Stop: 11/12/20 20:59 Last Admin: 10/13/20 20:03 Dose: 50 mg Documented by: Calcitriol (Calcitriol 0.25 Mcg Capsule) 0.5 mcg PO Q2D MARIA T Stop: 11/12/20 08:59 Last Admin: 10/13/20 10:03 Dose: 0.5 mcg Documented by: Calcitriol (Calcitriol 0.25 Mcg Capsule) 1 mcg PO Q2D MARIA T Stop: 11/13/20 08:59 Last Admin: 10/14/20 08:12 Dose: 1 mcg Documented by: Cyanocobalamin (Cyanocobalamin 500 Mcg Tablet (Vitamin B-12)) 1,000 mcg PO DAILY MARIA T Stop: 11/12/20 08:59 Last Admin: 10/14/20 08:13 Dose: 1,000 mcg Documented by: Dextrose (Dextrose 50% 50 Ml Syringe) 25 - 50 ml IV UD PRN; Protocol PRN Reason: Hypoglycemia Protocol Stop: 11/12/20 08:38 Fish Oil (Kenvil-3 (Purified Fish Oil) 1 Gm Cap) 1 gm PO DAILY MARIA T Stop: 11/12/20 08:59 Last Admin: 10/14/20 08:13 Dose: 1 gm Documented by: Gabapentin (Gabapentin 300 Mg Cap) 300 mg PO TID MARIA T Stop: 11/12/20 08:59 Last Admin: 10/14/20 14:35 Dose: 300 mg Documented by: Glucagon (Glucagon For Inj 1 Mg Vial) 1 mg SQ UD PRN; Protocol PRN Reason: Hypoglycemia Protocol Stop: 11/12/20 08:38 Glucose (Glucose 10 Tabs/Tube) 4 - 8 tabs PO UD PRN; Protocol PRN Reason: Hypoglycemia Protocol Stop: 11/12/20 08:38 Glucose (Glucose 40% Gel 15 Gm Tube) 15 - 30 gm PO UD PRN; Protocol PRN Reason: Hypoglycemia Protocol Stop: 11/12/20 08:38 Heparin Sodium (Porcine) (Heparin 100 Unit/Ml 5ml Flush) 5 ml FLUSH PRN PRN PRN Reason: Flush Stop: 11/13/20 00:33 Last Admin: 10/14/20 11:44 Dose: 5 ml Documented by: Insulin Aspart (Insulin Aspart 100 Units/Ml 3 Ml Pen) 0 units SC ACHS MARIA T Stop: 11/12/20 08:38 Last Admin: 10/14/20 12:57 Dose: Not Given Documented by: Levothyroxine Sodium (Levothyroxine Sodium 88 Mcg Tablet) 88 mcg PO DAILYBB MARIA T Stop: 11/13/20 06:29 Last Admin: 10/14/20 06:13 Dose: 88 mcg Documented by: Metoprolol Succinate (Metoprolol Succ 25mg Ext Rel Tab) 25 mg PO DAILY MARIA T Stop: 11/12/20 08:59 Last Admin: 10/14/20 10:26 Dose: Not Given Documented by: Miscellaneous (Carbohydrates For Hypoglycemia ) 15 - 30 gm PO UD PRN PRN Reason: Hypoglycemia Protocol Stop: 11/12/20 08:38 Multivitamins/Minerals (Calcium 600mg + Vit D 400 Iu Tab) 1 tab PO DAILY MARIA T Stop: 11/12/20 08:59 Last Admin: 10/14/20 08:13 Dose: 1 tab Documented by: Ondansetron HCl (Ondansetron Inj 2 Mg/Ml 2 Ml Vial) 4 mg IV Q6H PRN PRN Reason: Nausea Stop: 11/12/20 08:38 Polyethylene Glycol (Polyethylene (Miralax) 17 Gm Pack) 17 gm PO DAILY MARIA T Stop: 11/13/20 09:14 Last Admin: 10/14/20 14:36 Dose: 17 gm Documented by: Simvastatin (Simvastatin 40 Mg Tab) 40 mg PO HS [facility] Stop: 11/12/20 20:59 Last Admin: 10/13/20 20:04 Dose: 40 mg Documented by: Resident Activity Tracking Resident Involvement: Resident Care Provided Care Provided: Adult Hospital Medicine (1) Hypotension Hypotension type: unspecified hypotension type Qualified Code(s): I95.9 - Hypotension, unspecified
[2020-10-14] MEDS: CALCITRIOL 0.25 MCG CAPSULE PO SCH (08:12)
[2020-10-14] MEDS: GABAPENTIN 300 MG CAP PO SCH ×3 (08:12→21:45)
[2020-10-14] MEDS: CALCIUM 600MG + VIT D 400 IU TAB PO SCH (08:13)
[2020-10-14] MEDS: CYANOCOBALAMIN 500 MCG TABLET (VITAMIN B-12) PO SCH (08:13)
[2020-10-14] MEDS: OMEGA-3 (PURIFIED FISH OIL) 1 GM CAP PO SCH (08:13)
[2020-10-14] MEDS: INSULIN ASPART 100 UNITS/ML 3 ML PEN SC SCH ×4 (08:14→21:46)
[2020-10-14] MEDS: LACTATED RINGER'S 1,000 ML IV SCH (08:16)
[2020-10-14] MEDS: ACYCLOVIR 400 MG TAB PO SCH ×2 (08:17→21:49)
[2020-10-14] MEDS: METOPROLOL SUCC 25MG EXT REL TAB PO SCH (10:26)
[2020-10-14] MEDS ORDERED: Nursing to Pharmacy Communication SCH (10:30)
[2020-10-14] MEDS: HEPARIN 100 UNIT/ML 5ML FLUSH FLUSH PRN (11:44)
[2020-10-14] MEDS: ALUM HYDROX/MAG TRISILICATE CHEW PO PRN ×2 (12:03→17:38)
[2020-10-14] MEDS: POLYETHYLENE (MIRALAX) 17 GM PACK PO SCH (14:36)
[2020-10-14] MEDS: AMITRIPTYLINE HCL 50 MG TAB PO SCH (21:45)
[2020-10-14] MEDS: SIMVASTATIN 40 MG TAB PO SCH (21:50)
[2020-10-15] MEDS: LEVOTHYROXINE SODIUM 88 MCG TABLET PO SCH (04:48)
--- NOTE | 2020-10-15 08:06 | Discharge Summary ---
Date of Service October 15, 2020 Admission HPI Per Admitting Provider 75 yo F PMHx HTN, DM2, CLL with port for IVIG infusions, hypothyroidism, left hip arthroplasty presented to the ER for left hip pain following a fall the evening of 10/11. She was going into her garage and did not turn on the light and "tripped over her own feet" and landed on her left side. Minimal pain at that time, was able to ambulate without pain. 10/12 began to experience significant pain with walking as well as a large bruise over the left hip area, prompting her evaluation in the ER. She denies feeling dizzy or lightheaded prior to her fall. No loss of consciousness. No SOB, chest pain, recent fevers o r chills. In the ER she had XR and CT of the left hip, which showed no fractures. There was visualized a large left hip hematoma. Other evaluation included Hgb 9.2 from baseline ~12.5. On arrival was hypotensive to 70s/50s, which after 2L NSS bolus rapidly increased to 90s systolic. Discharge Data Allergies Allergy/AdvReac Type Severity Reaction Status Date / Time Sulfa (Sulfonamide Allergy Severe RASH Verified 10/13/20 04:17 Antibiotics) Consultations 10/13/20 04:21 ED Decision to Admit Stat Ordered Studies 10/13/20 02:56 CT pelvis wo con Urgent Hospital Course (1) Hypotension: 75 yo F PMHx HTN, DM2, CLL with port for IVIG infusions, hypothyroidism, left hip arthroplasty admitted for hypotension and large hematoma with decrease in Hgb. Hypotension: Thought to be secondary to a large hematoma. The patient was hypotensive on arrival with emergency department, improved with 2 L of normal saline. The patient was reassessed the following morning noted to be hypotensive and orthostatic again, her home metoprolol was held and she improved status post 1 L lactated Ringer's bolus and was continued on lactated Ringer's at 125 mL/h for an additional day. This resulted in significant improvement in her blood pressure. Patient is now been normotensive throughout the day, continue to monitor blood pressure and for signs of orthostatics. -Resume home metoprolol on discharge -Encourage p.o. hydration Hematoma 2/2 fall with Acute Blood Loss Anemia Noted on CT imaging there is no evidence of fracture or destruction of her prosthesis. Patient's pain has been well controlled with Tylenol and ice as needed, plan is to change to 1 year, but the bleeding is stopped. Patient's baseline hemoglobin is 12.5, we have trended it throughout the admission. Given patient's asymptomatic status suspect downtrending is likely dilutional secondar y to fluid administration. We will continue to trend hemoglobin and give 2 units of blood for a hgb less than 7. Patient is consented for blood. -Tylenol and ice prn pain, will change to heat when we are confident bleeding has stopped. -Hgb baseline 12.5 -9.2->7.9->8.3->7.4 -suspect variation likely dilutional 2/2 to fluids -given lack of syx, will continue to trend hgb and give 2 u blood for Hgb less than 7 -Follow-up a.m. hemoglobin -As needed H&H for symptoms of acute anemia DM2: -Holding home metformin while admitted SSI while admitted. HLD: Continue home simvastatin 40 mg po hs Hypothyroidism: Continue home levothyroxine. FENa:DMII Code Status: Full Code DVT PPX:contraindicated PT/OT: Plan to order when bleeding has stopped Dispo:Med/tele for cardiac monitoring Odell Jimenez MD PGY 2, FCM This chart was completed utilizing [employer] voice recognition software. Grammatical errors, random word insertions, pronoun errors, and in complete sentences are an occasional consequence of the system. Any questions or concerns about the content, text, or information contained within the body of this dictation should be addressed directly to the physician for clarification. Discharge Plan Discharge Items Reason For Visit: HYPOTENSION, HEMATOMA Condition on Discharge: Fair Medications and DC Order Prescriptions: No Action gabapentin 300 mg capsule 300 mg PO TID 90 Days Qty: 270 RF: 3 metformin 850 mg tablet 850 mg PO TID Qty: 270 RF: 3 calcitriol 0.5 mcg capsule 0.5 mcg PO .COMPLEX Qty: 90 RF: 3 amitriptyline 50 mg tablet 50 mg PO HS 90 Days Qty: 90 RF: 0 levothyroxine 88 mcg tablet 88 mcg PO DAILY Qty: 90 RF: 0 (DME) blood sugar diagnostic Strip See Rx Instructions .ROUTE .MEDSUPPLY Qty: 30 RF: 3 (DME) blood sugar diagnostic Strip See Rx Instructions .ROUTE .MEDSUPPLY Qty: 30 RF: 3 acyclovir 400 mg tablet 400 mg PO BID RF: 0 calcium carbonate-vitamin D3 [Caltrate with Vitamin D3] 600 mg(1,500mg) -800 unit tablet 1 tab PO DAILY RF: 0 simvastatin 40 mg tablet 40 mg PO DAILY RF: 0 metoprolol succinate [Toprol XL] 25 mg tablet extended release 24 hr 25 mg PO DAILY RF: 0 cyanocobalamin (vitamin B-12) 1,000 mcg capsule 1,000 mcg PO DAILY RF: 0 omega-3 fatty acids [Fish Oil Concentrate] 1,000 mg capsule 1,000 mg PO DAILY RF: 0 fluoride (sodium) [SF 5000 Plus] 1.1 % cream 1 applic dental HS RF: 0 Admission Data Admit Date/Time: 10/14/20 16:49 Attending Provider: Bianka La Admit Provider: Chrissy Wong Primary Care Provider: Bianka La Other Providers: Timmy Sharif
[2020-10-15] MEDS: POLYETHYLENE (MIRALAX) 17 GM PACK PO SCH (08:10)
[2020-10-15] MEDS: CALCIUM 600MG + VIT D 400 IU TAB PO SCH (08:10)
[2020-10-15] MEDS: OMEGA-3 (PURIFIED FISH OIL) 1 GM CAP PO SCH (08:10)
[2020-10-15] MEDS: GABAPENTIN 300 MG CAP PO SCH ×3 (08:10→19:59)
[2020-10-15] MEDS: METOPROLOL SUCC 25MG EXT REL TAB PO SCH (08:11)
[2020-10-15] MEDS: CALCITRIOL 0.25 MCG CAPSULE PO SCH (08:11)
[2020-10-15] MEDS: INSULIN ASPART 100 UNITS/ML 3 ML PEN SC SCH ×4 (08:11→20:35)
[2020-10-15] MEDS: CYANOCOBALAMIN 500 MCG TABLET (VITAMIN B-12) PO SCH (08:11)
[2020-10-15] MEDS: ACYCLOVIR 400 MG TAB PO SCH ×2 (08:11→20:02)
[2020-10-15 08:18] LABS: Basophils # (auto) 0.02 K/uL (0-0.2); Basophils % (auto) 0.8 %; Eosinophils # (auto) 0.07 K/uL (0-0.5); Hematocrit (blood only) 23.8 % (37-47); Hemoglobin 7.9 g/dL (12.0-16.0); Lymphocytes # (auto) 0.59 K/uL (1.2-3.4); Lymphocytes % (auto) 24.9 %; Mean Corpuscular Hemoglobin 29.6 pg (25-34); Mean Corpuscular Hgb Conc 33.2 g/dL (32-36); Mean Corpuscular Volume 89.1 fL (80-100); Mean Platelet Volume 8.4 fL (7.4-10.4); Monocytes # (auto) 0.26 K/uL (0.11-0.59); Neutrophils # (auto) 1.43 K/uL (1.4-6.5); Neutrophils % (auto) 60.3 %; Platelet Count 142 K/uL (130-400); Red Blood Count 2.67 M/uL (4.2-5.4); White Blood Count 2.37 K/uL (4.8-10.8)
[2020-10-15 08:48] LABS: Ovalocytes 1+
[2020-10-15] MEDS ORDERED: SODIUM CHLORIDE 0.9% 500 ML IV SCH (14:30)
[2020-10-15] MEDS: HEPARIN 100 UNIT/ML 5ML FLUSH FLUSH PRN (16:10)
--- NOTE | 2020-10-15 16:24 | Hospitalist Progress Note ---
Date of Service October 15, 2020 Assessment & Plan (1) Hypotension: 75 yo F PMHx HTN, DM2, CLL with port for IVIG infusions, hypothyroidism, left hip arthroplasty admitted for hypotension and large hematoma with decrease in Hgb. Orthostatic hypotension: Patient endorses a recent history of orthostatic hypotension, she states the symptoms associated with this are the reason for which she originally presented to the hospital. She states the fall was not concerning to her as she tripped on an object, however the subsequent symptoms of dizziness when standing were disturbing. On 10/15/2020 while being evaluated by PT significant orthostatic hypotension was noted BP while sittin/76, standin/63, after 2 minutes of standing, 73/47. Given these findings PT was not able to proceed seed with their assessment. The patient stated that the symptoms causing her to present with the same symptoms that she experienced today while standing. - we will continue holding metoprolol, -500 mL normal saline bolus -Encourage p.o. fluid intake -Practice strategies to mitigate orthostatic hypotension hypotension: Thought to be secondary to a large hematoma. The patient was hypotensive on arrival with emergency department, improved with 2 L of normal saline. The patient was reassessed the following morning noted to be hypotensive and orthostatic again, her home metoprolol was held and she improved status post 1 L lactated Ringer's bolus and was continued on lactated Ringer's at 125 mL/h for an additional day. This resulted in significant improvement in her blood pressure. Patient is now been normotensive throughout the day, continue to monitor blood pressure and for signs of orthostatics. -Resume home metoprolol on discharge -Encourage p.o. hydration Hematoma 2/2 fall with Acute Blood Loss Anemia Noted on CT imaging there is no evidence of fracture or destruction of her prosthesis. Patient's pain has been well controlled with Tylenol and ice as needed, plan is to change to 1 year, but the bleeding is stopped. Patient's baseline hemoglobin is 12.5, -Tylenol and ice prn pain, will change to heat when we are confident bleeding has stopped. -Hgb baseline 12.5 -9.2->7.9->8.3->7.4->7.9 -suspect variation likely dilutional 2/2 to fluids -given lack of syx, will continue to trend hgb and give 2 u blood for Hgb less than 7 -Follow-up a.m. hemoglobin -As needed H&H for symptoms of acute anemia DM2: -Holding home metformin while admitted SSI while admitted. HLD: Continue home simvastatin 40 mg po hs Hypothyroidism: Continue home levothyroxine. FENa:DMII Code Status: Full Code DVT PPX:contraindicated PT/OT: Plan to order when bleeding has stopped Dispo:Med/tele for cardiac monitoring Odell Jimenez MD PGY 2, FCM This chart was completed utilizing [employer] voice recognition software. Grammatical errors, random word insertions, pronoun errors, and in complete sentences are an occasional consequence of the system. Any questions or concerns about the content, text, or information contained within the body of this dictation should be addressed directly to the physician for clarification. Admission and Anticipated Discharge Date Admission Date: October 14, 2020 Supervising Physician Co-Signing Physician Notes Resident Physician Supervision Note: I independently interviewed and examined the patient and verified the oseguera history and physical, reviewed labs and image studies, discussed the case with the resident Dr. Jimenez and agree with the findings and care plan. Subjective Patient lying in bed this morning in no acute distress. Patient endorsing more dizziness when standing, status post stopping fluids. Patient reports she "just does not feel herself ". I reexamined the patient this afternoon after physical therapy and Occupational Therapy to visit her. Physical therapy had documented significant orthostatic hypotension noting BP while sittin/76, standin/63, after 2 minutes of standing, 73/47. The patient was but she could feel the symptoms of orthostatic hypotension occur as she stood up. After obtaining a further history she did endorse this was the actual reason that she presented to the hospital. The initial fall and bruise did not bother her so much, however later on when she would rise from sitting to standing she would become dizzy. She states that this is a new symptom and she has not experienced it before, previously she had similar symptoms when she was taking a beta-dontae, she does not recall the name this was subsequently stopped. She was started on metoprolol. All questions answered, acute concerns related to the origin and cause of her orthostatic hypotension. Review of Systems Review of Systems: All systems reviewed & are unremarkable except as noted in HPI & below Physical Exam Physical Exam: General: No acute distress HEENT: Normocephalic atraumatic Neck: Normal to visual inspection, trachea midline Cardiac: Regular rate and rhythm, I did not appreciate significant murmurs rubs or gallops, normal S1, normal S2, negative pedal edema, negative calf tenderness Respiratory: Clear to auscultation bilaterally with symmetrical chest expansion I did not appreciate significant wheezes, rales, rhonchi GI: Soft, nontender, nondistended, bowel sounds present MSK: Moves all extremities Neuro: Alert and oriented x4 Psych: Calm and cooperative with the interview Results & Data Results & Data ([facility]) Vital Signs (Past 12 Hours) Vital Signs Temp Pulse Pulse Resp BP Pulse Ox 10/15/20 11:23 36.9 C 82 18 126/75 97 10/15/20 07:31 36.6 C 72 18 110/70 97 10/15/20 07:19 68 Resident Activity Tracking Resident Involvement: Resident Care Provided Care Provided: Adult Hospital Medicine (1) Hypotension Hypotension type: unspecified hypotension type Qualified Code(s): I95.9 - Hypotension, unspecified
[2020-10-15] MEDS: AMITRIPTYLINE HCL 50 MG TAB PO SCH (19:59)
[2020-10-15] MEDS: SIMVASTATIN 40 MG TAB PO SCH (20:00)
[2020-10-16] MEDS: LEVOTHYROXINE SODIUM 88 MCG TABLET PO SCH (06:11)
[2020-10-16] MEDS: ACYCLOVIR 400 MG TAB PO SCH ×2 (08:07→21:29)
[2020-10-16] MEDS: OMEGA-3 (PURIFIED FISH OIL) 1 GM CAP PO SCH (08:07)
[2020-10-16] MEDS: GABAPENTIN 300 MG CAP PO SCH ×3 (08:08→21:29)
[2020-10-16] MEDS: POLYETHYLENE (MIRALAX) 17 GM PACK PO SCH (08:08)
[2020-10-16] MEDS: CALCIUM 600MG + VIT D 400 IU TAB PO SCH (08:08)
[2020-10-16] MEDS: CYANOCOBALAMIN 500 MCG TABLET (VITAMIN B-12) PO SCH (08:08)
[2020-10-16] MEDS: INSULIN ASPART 100 UNITS/ML 3 ML PEN SC SCH ×4 (08:09→21:34)
[2020-10-16] MEDS: CALCITRIOL 0.25 MCG CAPSULE PO SCH (08:10)
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
[2020-10-16] MEDS: FLUDROCORTISONE ACETATE 0.1 MG TAB PO SCH (17:20)
[2020-10-16] MEDS: AMITRIPTYLINE HCL 50 MG TAB PO SCH (21:28)
[2020-10-16] MEDS: SIMVASTATIN 40 MG TAB PO SCH (21:29)
[2020-10-17] MEDS: LEVOTHYROXINE SODIUM 88 MCG TABLET PO SCH (06:17)
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
[2020-10-17 08:01] LABS: Hematocrit (blood only) 24.9 % (37-47); Hemoglobin 8.1 g/dL (12.0-16.0)
[2020-10-17] MEDS: CYANOCOBALAMIN 500 MCG TABLET (VITAMIN B-12) PO SCH (08:26)
[2020-10-17] MEDS: CALCIUM 600MG + VIT D 400 IU TAB PO SCH (08:26)
[2020-10-17] MEDS: GABAPENTIN 300 MG CAP PO SCH (08:26)
[2020-10-17] MEDS: POLYETHYLENE (MIRALAX) 17 GM PACK PO SCH (08:27)
[2020-10-17] MEDS: OMEGA-3 (PURIFIED FISH OIL) 1 GM CAP PO SCH (08:27)
[2020-10-17] MEDS: CALCITRIOL 0.25 MCG CAPSULE PO SCH (08:27)
[2020-10-17] MEDS: INSULIN ASPART 100 UNITS/ML 3 ML PEN SC SCH ×2 (08:28→12:13)
[2020-10-17] MEDS: ACYCLOVIR 400 MG TAB PO SCH (08:29)
[2020-10-17] MEDS: FLUDROCORTISONE ACETATE 0.1 MG TAB PO SCH (10:29)
[2020-10-17] MEDS: HEPARIN 100 UNIT/ML 5ML FLUSH FLUSH PRN (11:52)
--- NOTE | 2020-10-30 12:25 | Coding Query ---
To promote full compliance with coding requirements relating to patient care, provider participation is requested in all cases of litigation services manager uncertainty. Please assist us with the question(s) below: Coding Question(s): The diagnosis below was documented in the 10/13/20 Progress Note with, "borderline hypovolemic shock at timescertainly at least symptomatic hypovolemia", then subsequently fell off all further documentation. Please indicate if it is still a possible diagnosis or ruled out. Physician's Response(s): HYPOVOLEMIC SHOCK ( x ) Diagnosed and POA ( ) Diagnosed and not POA ( ) Ruled out ( ) Other (please specify) MTDD
== END 2020-10-17 13:15 | disposition home or self-care (01) | DRG 312 ==
LOC: 2N 02:31 → ED 02:31 → SUATTDRO 05:48 → 2N 06:32